=== PATIENT | male | born 1960 | race Caucasian/White ===

== ENCOUNTER → 2017-09-27 10:52 | Outpatient (CLI) | payer OTHER, SELFPAY ==
--- NOTE | 2017-09-27 11:01 | VDLE_ITS ---
Reason For Study: LLE edema RIGHT LEFT CFV is compressible, spontaneous, phasic, GSV is normal. competent and demonstrates normal CFV is compressible, spontaneous, phasic, augmentation. competent, and demonstrates normal Procedure augmentation. Exam performed in department. LT FV is compressible in the proximal and The exam was diagnostic. mid segments. A preliminary report was called and/or faxed LT distal FV is dilated and non compressible to Dr. Perez's office @ 11:20 am. C/W acute DVT. PT was instructed to return to Dr. Perez's LT POP V, T/P trunk, PTV and PERV are office. dilated and C/W acute DVT. Interpretation Summary Acute deep vein thrombosis is noted in the left distal femoral vein. Acute deep vein thrombosis is noted in the left popliteal vein. Acute deep vein thrombosis is noted in the left tibio-peroneal trunk. Acute deep vein thrombosis is noted in the left posterior tibial vein. Acute deep vein thrombosis is noted in the left peroneal vein. The left common femoral vein and proximal/mid- femoral vein are patent and compressible. The left great saphenous vein is patent and compressible. Ordering Physician: Jean Perez Referring Physician: Jean Perez Performed By: Misa Asher, SYLVIA, RVT
== END ==
PROVIDERS: Family Provider Family Medicine; PCP Family Medicine; Visit Provider Family Medicine
DX: M79.89 Other specified soft tissue disorders (principal); I82.412 Acute embolism and thrombosis of left femoral vein; I82.432 Acute embolism and thrombosis of left popliteal vein; I82.442 Acute embolism and thrombosis of left tibial vein
CPT/HCPCS: 93971

== ENCOUNTER → 2017-12-25 07:57 | Outpatient (CLI) | payer OTHER, SELFPAY | PROVIDERS: Family Provider Family Medicine; PCP Family Medicine; Visit Provider Family Medicine | DX: I82.402 Acute embolism and thrombosis of unspecified deep veins of left lower extremity (principal) | CPT/HCPCS: 93971 ==

== ENCOUNTER → 2018-01-22 16:49 | Outpatient (CLI) | payer OTHER, SELFPAY ==
[2018-01-22 17:28] LABS: Absolute Lymphocyte Count 1.93 X10^3/ul (0.83-4.51); Absolute Neutrophil Count 7.8 X10^3/uL (2.0-7.7); Basophil# 0.03 X10^3/uL; Basophil% 0.3 % (0-1); Eosinophil# 0.21 X10^3/uL; Eosinophils% 1.9 % (0-5); Hematocrit 46.7 % (40-54); Hemoglobin 15.8 g/dl (13.0-16.5); Lymphocyte # 1.93 X10^3/ul (4.0); Lymphocyte % 17.6 % (19-41); Mean Corp Hgb Conc 33.8 g/gl (32-36); Mean Corpuscular Hgb 28.1 pg (27.0-32.0); Mean Corpuscular Volume 83.1 fL (80-94); Mean Platelet Vol. 10.1 fl (6.2-12.0); Monocyte# 0.93 X10^3/uL; Monocyte% 8.5 % (0-10); Neutrophil # 7.76 X10^3/uL (2.7-7.7); Platelet Count 262 K/mm3 (150-450); RBC Distribution Width CV 14.1 % (11.6-14.6); RBC Distribution Width SD 42.7 fl (35.1-43.9); Red Blood Count 5.62 M/mm3 (4.6-6.2); White Blood Count 10.9 K/mm3 (4.4-11.0)
[2018-01-22 17:31] LABS: POSITIVE COUNT NO; POSITIVE DIFFERENTIAL NO; POSITIVE MORPHOLOGY NO
[2018-01-22 18:25] LABS: Anion Gap 9 (5-15); BUN 21 mg/dL (7-18); BUN/Creat Ratio 21.1 RATIO (10-20); Chloride 104 mmol/L (98-107); Cholesterol 227 mg/dL (200); EST Glomerular Filtration Rate 82 mL/min (>60); Est Glom Filt Rate - Afr Amer 99 mL/min (>60); Glucose 88 mg/dL (74-106); High Density Lipoprotein 45 mg/dL; Magnesium 2.1 mg/dL (1.6-2.6); Potassium 3.7 mmol/L (3.5-5.1); Sodium Level 139 mmol/L (136-145); Thyroid Stim Hormone (TSH) 1.72 uIU/mL (0.358-3.74); Triglycerides 106 mg/dL; Very Low Density Lipoprotein 21 mg/dL (5-40)
== END ==
PROVIDERS: Family Provider Family Medicine; PCP Family Medicine; Visit Provider Family Medicine
DX: I49.3 Ventricular premature depolarization (principal); R07.9 Chest pain, unspecified
CPT/HCPCS: 36415; 80048; 80061; 83735; 84443; 85025

== ENCOUNTER → 2018-02-28 12:33 | Outpatient (CLI) | payer OTHER, SELFPAY ==
--- NOTE | 2018-02-28 12:36 | STE_ITS ---
Reason For Study: Chest Pain Stress Results Protocol: Yoan Protocol Maximum Predicted HR: 160 bpm Target HR: 136 bpm% Max imum Predicted HR: 106 % DurationHeart Rate Stage (mm:ss) (bpm) BPCom ment Baseline 88 128/82 No Chest Pain Yoan Protocol Stage I 3:00 12 3 136/76No Chest Pain Yoan Protocol Stage II 3:00 13 9 134/70No Chest Pain Yoan Protocol Stage III 3:00 16 0 160/72No Chest Pain Yoan Protocol Stage IV 0:30 16 9 / No Chest Pain Recovery 100 124/8 0No Chest Pain Stress Duration: 9:30 mm:ss Maximum Stress HR: 169 bpmM ETS: 11 Baseline Echocardiogram Findings Stress Echo Wall motion Data Resting WMIntermediate WMStress WM Resting Wall Motion Wall Motion Stress All segments Normal. All segments Hyperkinetic. Ejection Fraction 60 %. Ejection Fraction 75 %. Stress Results Heart rate response: appropriate Blood pressure response: normal resting BP - appropriate response Arrhythmias: occasional PVCs pretest and during early exercise with decrease at peak exercise and a return to occasional PVCs during recovery Functional capacity: good Stopped secondary to: fatigue. EKG Data Baseline ECG: Normal Sinus Rhythm; PVC's. Peak exercisee ECG: No Obvious ECG Changes. Symptoms with Stress No c/o chest discomfort during exercise and recovery. Interpretation Summary Negative (Adequate) Stress Echocardiogram. Ordering Physician: Jean Perez Referring Physician: Hever Montiel M.D. Performed By: Elvin Pierre RCS
== END ==
PROVIDERS: Family Provider Family Medicine; PCP Family Medicine; Referring Provider Family Medicine; Visit Provider Family Medicine
DX: R07.89 Other chest pain (principal)
CPT/HCPCS: 93017; 93350

== ENCOUNTER → 2018-05-20 13:12 | Outpatient (CLI) | payer OTHER, SELFPAY | PROVIDERS: Family Provider Family Medicine; PCP Family Medicine; Referring Provider Family Medicine; Visit Provider Family Medicine | DX: M79.661 Pain in right lower leg (principal); Z86.718 Personal history of other venous thrombosis and embolism | CPT/HCPCS: 93970 ==

== ENCOUNTER → 2018-09-24 10:01 | Outpatient (CLI) | payer OTHER, SELFPAY ==
--- NOTE | 2018-09-24 10:04 | VDLE_ITS ---
Reason For Study: F/U DVT RIGHT LEFT CFV is compressible, spontaneous, phasic, GSV is normal. competent and demonstrates normal CFV is compressible, spontaneous, phasic, augmentation. competent, and demonstrates normal Procedure augmentation. Exam performed in department. FV is compressible, spontaneous, phasic, A preliminary report was called and/or faxed competent and demonstrates normal to Dr. Perez. augmentation. POP V is compressible, spontaneous, phasic, competent and demonstrates normal augmentation. LT PerV is compressible. Lt T/P Trunk and Lt PTV are partially compressible with bright intraluminal echoes consistent with chronic DVT. Lt SSV is dilated and noncompressible, no change from previous study on 05/20/18. Interpretation Summary Chronic deep venous thrombosis left tibioperoneal trunk and posterior tibial veins. Superficial thrombophlebitis left small saphenous vein Normal flow patterns right common femoral vein Ordering Physician: Jean Perez Referring Physician: Jean Perez Performed By: Nikole Mitchell, SYLVIA, RVT
== END ==
PROVIDERS: Family Provider Family Medicine; PCP Family Medicine; Referring Provider Family Medicine; Visit Provider Family Medicine
DX: I82.542 Chronic embolism and thrombosis of left tibial vein (principal); I80.02 Phlebitis and thrombophlebitis of superficial vessels of left lower extremity
CPT/HCPCS: 93971

== ENCOUNTER 2019-05-22 04:42 | Observation (INO) | payer OTHER, SELFPAY ==
[2019-05-22] VITALS (13 sets, daily range): BP systolic 112–150; BP diastolic 68–97; PULSE 78–106; RESP 12–23; TEMP 36.7–37.1; O2SAT 93–99; BMI 28.2; BMI 27.4; BMI 27.5
--- NOTE | 2019-05-22 04:53 | EKG12_ITS ---
Test Reason : ABD PAIN Blood Pressure : / mmHG Vent. Rate : 088 BPM Atrial Rate : 088 BPM P-R Int : 184 ms QRS Dur : 108 ms QT Int : 386 ms P-R-T Axes : 020 -05 041 degrees QTc Int : 467 ms Normal sinus rhythm Normal ECG Confirmed by SCOT BOCANEGRA, AMNA ([id number]), video editor IESHA BUSTOS ([id number]) on 05/25/2019 10:20:07 AM Referred By: LIT Confirmed By:AMNA ELLISON MD
--- NOTE | 2019-05-22 04:53 | RAD_ITS ---
HISTORY: CHEST WALL PAIN THAT HURTS WHEN TAKING DEEP BREATHS THAT WOKE HIM UP FROM SLEEP AROUND 0400 EXAM: XR Chest 1 View: COMPARISON: September 26, 2015 FINDINGS: # of images incl. paperwork: 1 The right hemidiaphragm remains slightly elevated. Multiple embolic coils, likely of the splenic artery are present within the left hemiabdomen Lungs are clear. Heart is not enlarged. No acute osseous pathology perceived. Pulmonary vascularity is distinct. No effusions. RAD/Chest 1 View (Portable) IMPRESSION: No acute cardiopulmonary disease perceived. at 0568 Reported and signed by: Jonatan White MD Electronically Signed: Jonatan White MD at 5:25 EST Tel , Service support ,
--- NOTE | 2019-05-22 04:57 | ED.VISSUMM ---
- ER Visit Summary Date of Service: 05/22/19 Chief Complaint: Abdominal pain History of Present Illness: The patient is a 59 M presenting with abdominal pain. Patient states this is worse with taking a deep breath. Pain started around 4 AM. Initially woke up and thought he might feel better if he had a bowel movement. He continued to have symptoms therefore he presented to the emergency department. He denies fever. He has had URI symptoms. He denies nausea, vomiting, diarrhea. Denies constipation. Denies blood in stool. Denies urinary complaints. Denies other complaints. Physical Examination: Vitals are stable. Patient is afebrile. Alert no acute distress. HEENT exam is unremarkable. Neck is supple. Lungs are clear and equal bilaterally. Heart is regular rate and rhythm. Abdomen is soft nontender nondistended. No guarding or rebound Extremities are unremarkable. Skin is warm and dry. No focal neurologic deficit. Remainder of exam is unremarkable. Emergency Department Course and Treatment: EKG is sinus rhythm rate of 88 with no acute ischemic changes. CBC shows white count 14.3. Chemistries normal except glucose 116, BUN 20. Liver lipase are normal. Urinalysis unremarkable. Troponin is negative. Chest x-ray shows no acute process. CTA chest shows multiple pulmonary emboli are present on the left, seen in left lower lobe and lingular branches. No pulmonary infarct. CT abdomen shows stable thrombosed splenic artery aneurysm. No evidence of appendicitis, acute intestinal pathology, or acute obstructive uropathy. Discussed with the hospitalist. He was given Lovenox. He will be admitted. Disposition: Admission Impression: Pulmonary embolism This note was generated with [employer] dictation software. It may contain incorrect words, spelling, and punctuation that were not noted in review of the chart prior to signing ED Disposition - Plan for ED Patient: Referrals: Jean Magana MD [Primary Care Provider] -
[2019-05-22 05:10] LABS: Absolute Lymphocyte Count 2.28 X10^3/uL (0.83-4.51); Absolute Neutrophil Count 9.9 X10^3/uL (2.0-7.7); Basophil# 0.06 X10^3/uL; Basophil% 0.4 % (0-1); Eosinophil# 0.62 X10^3/uL; Eosinophils% 4.3 % (0-5); Hematocrit 45.4 % (40-54); Hemoglobin 14.8 g/dL (13.0-16.5); Lymphocyte # 2.28 X10^3/ul (4.0); Mean Corp Hgb Conc 32.6 g/dL (32-36); Mean Corpuscular Hgb 27.5 pg (27.0-32.0); Mean Corpuscular Volume 84.2 fL (80-94); Mean Platelet Vol. 9.7 fl (6.2-12.0); Monocyte# 1.31 X10^3/uL; Monocyte% 9.2 % (0-10); NRBC Flagged by Analyzer 0 % (0-5); Neutrophil # 9.93 X10^3/uL (2.7-7.7); Neutrophil % 69.5 % (47-70); Platelet Count 208 K/mm3 (150-450); RBC Distribution Width CV 13.7 % (11.6-14.6); RBC Distribution Width SD 42.1 fl (35.1-43.9); Red Blood Count 5.39 M/mm3 (4.6-6.2); White Blood Count 14.3 K/mm3 (4.4-11.0)
[2019-05-22 05:28] LABS: ALB/GLOB Ratio 1.1 RATIO (0.9-2.4); AST(SGOT) 13 U/L (15-37); Alanine Aminotransfer ALT/SGPT 30 U/L (16-61); Albumin, Serum 3.9 g/dL (3.2-5.0); Alkaline Phosphatase 83 U/L (45-117); Anion Gap 5 (5-15); BUN 20 mg/dL (7-18); BUN/Creat Ratio 19.8 RATIO (10-20); Calcium,Total 8.7 mg/dL (8.5-10.1); Chloride 105 mmol/L (98-107); Creatinine, Serum 1.01 mg/dL (0.70-1.30); EST Glomerular Filtration Rate 80 mL/min (>60); Est Glom Filt Rate - Afr Amer 97 mL/min (>60); Estimated Creatinine Clearance 74.31 ml/min; Globulin 3.5 g/dL (2.2-4.2); Glucose 116 mg/dL (74-106); Lipase 106 U/L (73-393); Potassium 3.9 mmol/L (3.5-5.1); Protein, Total 7.4 g/dL (6.4-8.2); Sodium Level 138 mmol/L (136-145)
--- NOTE | 2019-05-22 05:39 | CT_ITS ---
STUDY: CT ABDOMEN AND PELVIS WITH CONTRAST REASON FOR EXAM: Male, 59 years old. ABDOMEN AND CHEST PAIN. PRIOR SPLENIC ARTERY ANEURYSM RADIATION DOSAGE (If Supplied By Facility): CTDIvol = ( 13.56 ) mGy, DLP = ( 1429.31 ) mGycm TECHNIQUE: Transaxial images were obtained from the dome of the diaphragm to the symphysis pubis without oral contrast. IV 100mL Isovue-370 was administered. Sagittal and coronal images were reconstructed. Individualized dose optimization techniques were used for this CT. COMPARISON: 07/02/2016 FINDINGS: The visualized lung bases are unremarkable. The visualized portions of the heart are within normal limits. Normal liver. Normal gallbladder and extrahepatic biliary system. Normal spleen. Stable thrombosed splenic artery aneurysm measuring 26 x 23 mm. Normal pancreas. Normal bilateral adrenal glands. Normal right kidney. Normal left kidney. Normal visualized stomach. Normal small intestine. Normal colon. The appendix is visualized and appears normal. Normal abdominal aorta. Normal inferior vena cava. Normal retroperitoneum. Normal urinary bladder. There are prostatic calcifications. Umbilical fat hernia. Grade 1 L4-[address]/Abdomen/Pelvis W IV Cont ONLY IMPRESSION: Stable thrombosed splenic artery aneurysm. No evidence of appendicitis, acute intestinal pathology, or acute obstructive uropathy. Electronically Signed: Chris Cohen MD at 6:39 EST Tel , Service support ,
--- NOTE | 2019-05-22 05:39 | CT_ITS ---
We are attempting to reach an attending provider to discuss findings. An addendum with communication details will be sent when the communication is complete. STUDY: CTA CHEST REASON FOR EXAM: Male, 59 years old. ABDOMEN AND CHEST PAIN. HISTORY OF SPLENIC ANEURYSM AND DVT''S RADIATION DOSAGE (If Supplied By Facility): CTDIvol = ( 13.56 ) mGy, DLP = ( 1429.31 ) mGycm TECHNIQUE: The examination was performed with the intravenous administration of IV 100mL Isovue-370. Post-processing of the angiographic images was performed, with multiplanar reformation and 3D reconstruction. Individualized dose optimization techniques were used for this CT. COMPARISON: 06/20/2014 FINDINGS: Multiple pulmonary emboli are present on the left, seen in left lower lobe and lingular branches. Normal thoracic aorta and visualized great vessels. There is no demonstrated aortic dissection. Normal heart and pericardium. Normal mediastinum. Normal hilar regions. Normal visualized trachea and bronchi. Right basilar atelectasis. Normal pulmonary parenchyma. Normal pleura. Normal chest wall structures. Normal osseous structures. See separate abdominal CT report for details of the upper abdomen. CT/CTA Chest W/WO Contrast IMPRESSION: Multiple pulmonary emboli are present on the left, seen in left lower lobe and lingular branches. No pulmonary infarct. Electronically Signed: Chris Cohen MD at 6:34 EST Tel , Service support ,
[2019-05-22 06:12] LABS: Bacteria 0 SEEN /hpf (None Seen); Mucous, Urine 0 SEEN /hpf (<or=2+); Red Blood Cells-Urine 0 SEEN /hpf (0-5); Squamous Epithelial Cells - UA 0 SEEN /hpf (0-5); White Blood Cells 0 SEEN /hpf (0-5)
[2019-05-22 06:17] LABS: Color, Urine Yellow (Yellow); Glucose, Dipstick Normal (Normal); Ketone-Dipstick Negative (Negative); Leukocyte Esterase-Dipstick Negative /ul (Negative); Nitrite-Dipstick Negative (Negative); Occult Blood-Urine Negative /ul (Negative); Protein-Dipstick Negative (Negative); Specific Gravity, Urine 1.015 (1.002-1.030); Urine Bilirubin Dipstick Negative (Negative); Urine Clarity Clear (Clear); Urine Urobilinogen Normal (Normal)
--- NOTE | 2019-05-22 07:19 | NURSING ---
PCSascha SÁNCHEZ ASHELFAH
[2019-05-22] MEDS: Enoxaparin 80 MG/0.8 ML Syringe 85 MG SC (07:28)
[2019-05-22] MEDS: 0.9% Normal Saline 1,000 ML 75 ML IV (08:04)
[2019-05-22] MEDS: 0.9% Saline Lock 10 ML Syringe IV (08:05)
[2019-05-22 08:33] LABS: International Normalized Ratio 1.1; Prothrombin Time (Protime)PT. 13.7 SECONDS (11.7-14.9)
[2019-05-22] MEDS: amLODIPine 5 MG Tablet PO (09:53)
[2019-05-22] MEDS: Lisinopril 10 MG Tablet PO (09:53)
--- NOTE | 2019-05-22 10:41 | PCM.HP.STD ---
Problem List (1) Pulmonary embolism Status: Acute (2) History of splenic aneurysm Status: Chronic (3) History of left leg DVT Status: Chronic (4) Hypertension Status: Chronic History of Present Illness Date of Admission: 05/22/19 Chief Complaint: Abdominal pain. The patient is a 59 year old M patient with past medical history as mentioned above presented to the emergency room because of abdominal pain. His symptoms started this morning around 4 AM after he woke up from sleep, started having abdominal pain, generalized, described as squeezing type pain, 6 out of 10 in severity, aggravated by taking a deep breath and without aggravating factor. This pain lasted for Couple of hours until he came to the emergency department. He denied nausea or vomiting. Denies constipation or diarrhea. Denies fever or chills. He denied chest pain or shortness of breath. Denied palpitation, dizziness or lightheadedness. Patient with history of right leg DVT on Sep, 2017 and he was treated with Eliquis for 6 months with serial venous Dopplers. Eliquis was discontinued 6 months ago but he was informed that he still have a residual of those blood clots in the left leg. Last venous Doppler done on September, and that showed chronic DVT of the left tibioperoneal trunk and posterior tibial veins. At that time, Eliquis was discontinued. Patient denied any recent travel. He denied recent surgery or history of cancer. In the emergency department, his vital signs were stable. His routine blood work was remarkable for leukocytosis, otherwise normal. EKG revealed normal sinus rhythm without evidence of acute segment changes or cardiac arrhythmias. Troponin was negative. LFT was unremarkable. Lipase was normal. Urinalysis was clean without evidence of infection. Chest x-ray showed no acute findings. CT scan abdomen and pelvis with IV contrast revealed stable thrombosed splenic artery aneurysm, no other acute findings. CTA chest revealed multiple left lower lobe and lingular branches pulmonary emboli. Patient is being admitted for acute multiple left pulmonary emboli. Past Medical History Past Medical History (Chronic Problems): Chronic Problems History of splenic aneurysm (Chronic) History of left leg DVT (Chronic) Hypertension (Chronic) Allergies No Known Allergies Allergy (Verified 05/22/19 04:43) Home Medications: Ambulatory Orders Medication Instructions Recorded Lisinopril [Zestril] 10 mg PO DAILY 06/20/14 Amlodipine [Norvasc] 5 mg PO DAILY 09/26/15 Aspirin [Aspirin, Baby] 81 mg PO DAILY 05/22/19 Multivitamin with Minerals 1 ea PO DAILY 05/22/19 [Multiple Vitamin] Surgical History: no surgical history Psychiatric History: No pertinent psych hx Lives: Spouse/ Significant Other Smoking Status: Never smoker Tobacco Use: Non-smoker Alcohol: None Drugs: None - *Family History Maternal History Items: No pertinent history Paternal History Items: No pertinent history Review of Systems Constitutional: Denies: Anorexia, Chills, Fever, Night Sweats Eyes: Denies: Blurred vision, Cataracts, Double vision, Drainage, Redness HEENT: Denies: Difficulty Hearing, Ear Pain, Eye Pain, Nasal Congestion, Sore Throat Cardiovascular: Denies: Chest Pain, Chest Pressure, Chest Tightness, Heaviness, Light Headedness, Palpitations, Syncope Respiratory: Denies: Cough, Pleuritic Pain, Shortness of Breath, Sputum production, Wheezing Gastrointestinal: Reports: Abdominal Pain. Denies: Constipation, Diarrhea, Nausea, Vomiting Genitourinary: Denies: Dysuria, Frequency, Hematuria Musculoskeletal: Denies: Arm Pain, Back Pain, Foot Pain Skin: Denies: Dryness, Rash Neurological: Denies: Balance problems, Double vision, Change in Speech, Slurred speech, Confusion, Headaches, Numbness, Tingling Psychiatric: Denies: Anxiety, Depression Endocrine: Denies: Change in Body Habitus, Heat/ Cold Intolerance, Polydipsia, Polyuria VTE Information - Inpt Only VTE Present on Admission: Yes VTE Mechan Device Prophylaxis: None VTE Pharm Prophylaxis ordered?: No Patient Problems: Active and Suspected Problems Pulmonary embolism (Acute) - Physical Exam Vitals/I&O's: Vital Signs Temp Pulse Resp BP Pulse Ox 98.3 F 86 16 122/71 H 94 05/22/19 07:50 05/22/19 07:50 05/22/19 07:50 05/22/19 09:55 05/22/19 07:50 Oxygen Delivery Method Room Air Weight: 180 lb 8.937 oz Body Mass Index (BMI) 27.4 General: Alert, Oriented x3, Cooperative, No apparent distress HEENT: Atraumatic, PERRLA, EOMI, Normocephalic Oral: Moist Mucosa, No Gingival or Mucosal Lesions/ Ulcerations Neck: Supple, No JVD, Negative Carotid Bruits, Trachea Midline, Thyroid Normal Size and Texture Lungs: Clear to auscultation, Normal air movement, No rhonchi, No wheeze, No rales Cardiovascular: Regular rate, Regular Rhythm, Normal S1, Normal S2, No murmurs, PMI Normal Abdomen: Bowel Sounds Present, Soft, Non Tender, Non-Distended, No Hepato-splenomegaly Extremities: No clubbing, No cyanosis, No edema Skin: No rashes, No breakdown Lymphatic: No Cervical, Supraclavicular, or Inguinal Adenopathy Neurological: Cranial nerves II-XII grossly intact, Motor Exam 5/5 strength throughout Psych/Mental Status: Normal Affect, Appropriate, Alert and oriented to time, place, person, mood and affect Laboratory Results 05/22/19 05:00: WBC 14.3 H, RBC 5.39, Hgb 14.8, Hct 45.4, MCV 84.2, MCH 27.5, MCHC 32.6, RDW Std Deviation 42.1, RDW Coeff of Ankita 13.7, Plt Count 208, MPV 9.7, Immature Gran % (Auto) 0.600, Neut % (Auto) 69.5, Lymph % (Auto) 16.0 L, Hodgeman % (Auto) 9.2, Eos % (Auto) 4.3, Baso % (Auto) 0.4, Absolute Neuts (auto) 9.9 H, Absolute Lymphs (auto) 2.28, Nucleated RBC % 0 05/22/19 05:00: Sodium 138, Potassium 3.9, Chloride 105, Carbon Dioxide 28.0, Anion Gap 5, BUN 20 H, Creatinine 1.01, Estim Creat Clear Calc 74.31, Est GFR (MDRD) Af Amer 97, Est GFR (MDRD) Non-Af 80, BUN/Creatinine Ratio 19.8, Glucose 116 H, Calcium 8.7, Total Bilirubin 0.90, AST 13 L, ALT 30, Alkaline Phosphatase 83, Troponin I < 0.015, Total Protein 7.4, Albumin 3.9, Globulin 3.5, Albumin/Globulin Ratio 1.1, Lipase 106 05/22/19 05:45: Urine Color Yellow, Urine Clarity Clear, Urine pH 6.0, Ur Specific Glen 1.015, Urine Protein Negative, Urine Glucose (UA) Normal, Urine Ketones Negative, Urine Occult Blood Negative, Urine Nitrite Negative, Urine Bilirubin Negative, Urine Urobilinogen Normal, Ur Leukocyte Esterase Negative, Urine RBC 0 SEEN, Urine WBC 0 SEEN, Ur Squamous Epith Cells 0 SEEN, Urine Bacteria 0 SEEN, Urine Mucus 0 SEEN 05/22/19 08:05: PT 13.7, INR 1.1 05/22/19 08:05: Protein C Antigen Pending, Prot C Funct Activity Pending, Functional Protein S Pending, Free Protein S Pending, Total Protein S Pending, Func Antithrombin III Pending, Factor V Leiden Mutat Pending, Anti-Cardiolipin IgG Ab Pending, Anti-Cardiolipin IgM Ab Pending Clinical Impression(s) from Imaging Studies Chest X-Ray 05/22/19 04:53 IMPRESSION: No acute cardiopulmonary disease perceived. at 0526 Reported and signed by: Jonatan White MD Electronically Signed: Jonatan White MD at 5:25 EST Tel , Service support , Abdomen/Pelvis CT 05/22/19 05:39 IMPRESSION: Stable thrombosed splenic artery aneurysm. No evidence of appendicitis, acute intestinal pathology, or acute obstructive uropathy. Electronically Signed: Chris Cohen MD at 6:39 EST Tel , Service support , Chest CTA 05/22/19 05:39 IMPRESSION: Multiple pulmonary emboli are present on the left, seen in left lower lobe and lingular branches. No pulmonary infarct. Electronically Signed: Chris Cohen MD at 6:34 EST Tel , Service support , ADDENDUM: 05/22/19 0644 IMPRESSION: Multiple pulmonary emboli are present on the left, seen in left lower lobe and lingular branches. No pulmonary infarct. N.B. : The above information has been verbally conveyed by Chris Cohen MD to Denise Hodges MD, on 05/22/2019 06:37:41 (ET). Electronically Signed: Chris Cohen MD at 6:34 EST Tel , Service support , Current Medications Acetaminophen (Tylenol) 650 mg PO Q6H PRN PRN PRN Reason: Pain Score 1-3/Temp > 100.7 F Amlodipine Besylate (Norvasc) 5 mg PO DAILY [facility] Last Admin: 05/22/19 09:53 Dose: 5 mg Documented by: Enoxaparin Sodium (Lovenox) 80 mg SC Q12@0600,1800 [facility] Sodium Chloride () 1,000 mls @ 75 mls/hr IV .[id number] [facility] Stop: 05/22/19 21:01 Last Admin: 05/22/19 08:04 Dose: 75 mls/hr Documented by: Sodium Chloride () 250 mls @ 15 mls/hr IV .[id number] PRN PRN Reason: Saline Flush Sodium Chloride () 250 mls @ 15 mls/hr IV .[id number] PRN PRN Reason: Additional IVPB Infusion Lisinopril (Zestril) 10 mg PO DAILY [facility] Last Admin: 05/22/19 09:53 Dose: 10 mg Documented by: Morphine Sulfate () 1 mg IV Q4H PRN PRN PRN Reason: Pain Score 6-10/10 Ondansetron HCl (Zofran) 4 mg IV Q8H PRN PRN PRN Reason: NAUSEA/VOMITING Oxycodone HCl (Oxyir) 5 mg PO Q6H PRN PRN PRN Reason: Pain Score 4-10/10 Senna/Docusate Sodium (Senokot-S, Margot-Colace) 2 tablet PO BID PRN PRN PRN Reason: Constipation Sodium Chloride () 10 - 40 ml IV UD PRN PRN Reason: SALINE FLUSH Last Admin: 05/22/19 08:05 Dose: 10 ml Documented by: Assessment/Plan All Active Problems Pulmonary embolism (Acute) This is a 59 years old male patient presented to the emergency room because of abdominal pain, found to have multiple left lung pulmonary emboli on CTA chest and he is being admitted for treatment. #1 acute multiple left lower lobe/lingular branches pulmonary emboli: In context of history of left leg DVT, was on Eliquis which was discontinued 6 months ago. No history of travel, recent history or history of cancer. No family history of clotting disorders. EKG reviewed, unremarkable. Respiratory status stable. He does have leukocytosis which is probably reactive, no evidence of infection. Plan: Admit to PCU, cardiac monitoring, start therapeutic Lovenox twice daily, will do hypercoagulable work-up including protein C profile, protein S, Antithrombin III, factor V Leiden, anticardiolipin, repeat CBC tomorrow morning. #2 history of left lower extremity DVT: Completed Eliquis 6 months ago. Last Doppler ultrasound was done on Sep, 2018 and showed chronic DVT of the left leg as prescribed above. Plan as above. #3 history of splenic artery aneurysm: Status post coiling/thrombosis, stable on CTA abdomen. #4 hypertension: Blood pressure stable, continue Norvasc and lisinopril. #5 DVT prophylaxis: Patient will be on Lovenox twice daily for treatment. This note was generated with [employer] dictation software. It may contain incorrect words, spelling, and punctuation that were not noted in checking the note before signing. Code Visit Inpatient E&M: 29575 Init Hosp L3
--- NOTE | 2019-05-22 12:34 | CASEMGMT ---
RN CM Assessment Introduced role of RN CM to patient, sitting in chair at side of bed.? Patient is alert, oriented and able?to participate in RN CM Assessment. ?Care providers, pharmacy, and demographics verified. Presentation: Abd Pain Admit Dx: Mult Lt Pulmonary Emboli Re-Admit: No Barriers/Issues: None PCP: Jean Magana Specialists: None Preferred Pharmacy: [facility], [facility] Insurance: [employer] Rx Benefit: Yes? ?LNOK: Nu Farley LW/HPOA: States thinks has a will but not sure if it is a LW, will have to ask his . Declines offered information or completion of services on this admission. Aware can return as an Outpatient to complete with dept. Living Arrangements:? Lives with his in a 2SH, Has a Bedroom on both 1[address] and [address] fl. No steps to enter home. ADL?s: Independent with ambulation and ADLs Transportation: Patient drives and denies any issues with transportation DME: None HHC: None SNF: None Goal: Home and does not think will have any needs. Patient currently on room air, pending ambulatory walking test, provided an In Network DME list and patient preference is [facility] if Oxygen is needed. Denies any issues, concerns, needs or questions with DC planning at this time. Aware CM will remain available for any emerging needs. DC PLAN: Home with no anticipated needs identified at this time. GALLO Loco
[2019-05-22] MEDS: Enoxaparin 80 MG/0.8 ML Syringe SC (17:27)
--- NOTE | 2019-05-22 18:31 | NURSING ---
Reviewed and agreed on all charting with Suad Sandoval RN
[2019-05-23 01:06] LABS: Magnesium 2.1 mg/dL (1.6-2.6)
[2019-05-23 01:55] VITALS: BP 117/66; PULSE 78; RESP 16; TEMP 36.5; O2SAT 96
[2019-05-23 03:00] VITALS: PULSE 66
[2019-05-23] MEDS: Enoxaparin 80 MG/0.8 ML Syringe SC (06:07)
[2019-05-23 07:24] LABS: Absolute Lymphocyte Count 1.58 X10^3/uL (0.83-4.51); Absolute Neutrophil Count 5.6 X10^3/uL (2.0-7.7); Basophil# 0.07 X10^3/uL; Basophil% 0.8 % (0-1); Eosinophil# 0.49 X10^3/uL; Eosinophils% 5.6 % (0-5); Hematocrit 43.5 % (40-54); Hemoglobin 14.2 g/dL (13.0-16.5); Lymphocyte # 1.58 X10^3/ul (4.0); Lymphocyte % 18.1 % (19-41); Mean Corp Hgb Conc 32.6 g/dL (32-36); Mean Corpuscular Hgb 27.6 pg (27.0-32.0); Mean Corpuscular Volume 84.6 fL (80-94); Monocyte# 0.87 X10^3/uL; NRBC Flagged by Analyzer 0 % (0-5); Neutrophil # 5.63 X10^3/uL (2.7-7.7); Neutrophil % 64.7 % (47-70); Platelet Count 205 K/mm3 (150-450); RBC Distribution Width CV 13.6 % (11.6-14.6); RBC Distribution Width SD 41.9 fl (35.1-43.9); Red Blood Count 5.14 M/mm3 (4.6-6.2); White Blood Count 8.7 K/mm3 (4.4-11.0)
[2019-05-23 07:30] VITALS: PULSE 74
[2019-05-23] MEDS: APIXABAN 5 MG TABLET 10 MG PO (09:29)
[2019-05-23] MEDS: Lisinopril 10 MG Tablet PO (09:30)
[2019-05-23] MEDS: amLODIPine 5 MG Tablet PO (09:30)
[2019-05-23] MEDS: Aspirin 81 MG TAB.CHEW PO (09:30)
[2019-05-23 09:33] VITALS: BP 107/71; PULSE 77; RESP 18; TEMP 36.5; O2SAT 96
--- NOTE | 2019-05-23 11:08 | PCM.DC ---
- Discharge Diagnoses Current Active Problems: Current Active and Chronic Problems Pulmonary embolism (Acute) History of splenic aneurysm (Chronic) History of left leg DVT (Chronic) Hypertension (Chronic) You will use the following diet at home:: Cardiac Your food should be the consistency of: Regular Discharge Activity: Return to Normal Activity Weight Bearing Status: Full weight bearing Call your doctor if you observe: Fever of 101 or Higher, Shortness of breath, Dizziness, Fainting spells, Chest pain, Increased palpitations (irregular heartbeat), Uncontrolled pain Instructions: Pulmonary Embolism Allergies/Adverse Reactions: Allergies No Known Allergies Allergy (Verified 05/22/19 04:43) Medications to take at Discharge Lisinopril [Zestril] 10 mg PO DAILY 06/20/14 Amlodipine [Norvasc] 5 mg PO DAILY 09/26/15 Aspirin [Aspirin, Baby] 81 mg PO DAILY 05/22/19 Multivitamin with Minerals [Multiple Vitamin] 1 ea PO DAILY 05/22/19 Apixaban [Eliquis] 10 mg PO #90 tab 05/23/19 The following prescriptions were given: Apixaban [Eliquis] 10 mg PO 799,1999 #90 tab Transmission Status: Received by [facility] Primary Care Physician: Jean Magana MD [Primary Care Provider] - Please follow up with your Primary Care Physician in: 1-2 weeks. Test Results: Test results from this visit will be discussed in further detail at your follow-up appointment, if applicable.
[2019-05-23 12:00] VITALS: BP 124/68; PULSE 72; RESP 18; TEMP 36.8; O2SAT 98
--- NOTE | 2019-05-23 12:12 | DS.PCM_ITS ---
Discharge Date and Diagnosis Date of Admission: 05/22/19 Date of Discharge: 05/23/19 - Primary Discharge Diagnosis Acute multiple left lower lobe/lingular branches pulmonary emboli. 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 at 0526 Reported and signed by: Jonatan White MD Electronically Signed: Jonatan White MD at 5:25 EST Tel , Service support , Abdomen/Pelvis CT 05/22/19 05:39 IMPRESSION: Stable thrombosed splenic artery aneurysm. No evidence of appendicitis, acute intestinal pathology, or acute obstructive uropathy. Electronically Signed: Chris Cohen MD at 6:39 EST Tel , Service support , Chest CTA 05/22/19 05:39 IMPRESSION: Multiple pulmonary emboli are present on the left, seen in left lower lobe and lingular branches. No pulmonary infarct. Electronically Signed: Chris Cohen MD at 6:34 EST Tel , Service support , ADDENDUM: 05/22/19 0644 IMPRESSION: Multiple pulmonary emboli are present on the left, seen in left lower lobe and lingular branches. No pulmonary infarct. N.B. : The above information has been verbally conveyed by Chris Cohen MD to Denise Hodges MD, on 05/22/2019 06:37:41 (ET). Electronically Signed: Chris Cohen MD at 6:34 EST Tel , Service support , Operations: None Procedures: None Summary of Care Provided: Patient seen and examined on the day of discharge and appeared to be stable to be discharged home. He denied any more abdominal pain. Denied chest pain or shortness of breath. His vitals are stable. The patient is a 59 year old M patient presented to the emergency room because of abdominal pain and he was found to have acute multiple left lung pulmonary emboli. His main presenting complaint was vague abdominal pain across the abdomen for which CT scan abdomen and pelvis with IV contrast performed and revealed stable thrombosed splenic artery aneurysm without evidence of acute intra-abdominal pathology. Also patient complains of vague chest pain for which CTA chest done and revealed multiple left lower lobe and lingular branches pulmonary emboli, there was no evidence of dissection. This patient history of left leg DVT on Sep, 2017, was treated with Eliquis which was discontinued on 6 months ago. 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 It is not clear if this acute PE is provoked history of DVT or unprovoked secondary to a different etiology. Patient was treated with therapeutic Lovenox twice daily. EKG was unremarkable. Routine blood work was remarkable for leukocytosis which is reactive, resolved on repeat CBC. LFT and lipase were unremarkable. Hypercoagulability work-up was sent and pending at the time of discharge. Patient was started on Eliquis on the day of discharge. Patient discharged home in a stable medical condition, discharged on Eliquis 10 mg p.o. twice daily for 7 days and then to take 5 mg p.o. twice daily, instructed to follow-up with PCP regarding the results of the hypercoagulable work-up, follow-up with PCP in 1 to 2 weeks. - Physical Exam Vitals/I&O's: Vital Signs Temp Pulse Resp BP Pulse Ox 98.3 F 72 18 124/68 H 98 05/23/19 12:00 05/23/19 12:00 05/23/19 12:00 05/23/19 12:00 05/23/19 12:00 Oxygen Delivery Method Room Air Weight: 180 lb 8.937 oz Body Mass Index (BMI) 27.4 Intake and Output for Last 24 Hours 05/21/19 05/22/19 05/23/19 23:59 23:59 23:59 Intake Total 2099 Output Total Balance 2097 General: Alert, Oriented x3, Cooperative, No apparent distress HEENT: Atraumatic, PERRLA, EOMI, Normocephalic Oral: Moist Mucosa, No Gingival or Mucosal Lesions/ Ulcerations Neck: Supple, No JVD, Negative Carotid Bruits, Trachea Midline, Thyroid Normal Size and Texture Lungs: Clear to auscultation, Normal air movement, No rhonchi, No wheeze, No rales Cardiovascular: Regular rate, Regular Rhythm, Normal S1, Normal S2, PMI Normal Abdomen: Bowel Sounds Present, Soft, Non Tender, Non-Distended, No Hepato-splen omegaly Extremities: No clubbing, No cyanosis, No edema Skin: No rashes, No breakdown Lymphatic: No Cervical, Supraclavicular, or Inguinal Adenopathy Neurological: Cranial nerves II-XII grossly intact, Neuro grossly intact Psych/Mental Status: Normal Affect, Appropriate Laboratory Results 05/22/19 05:00: Magnesium 2.1 05/23/19 06:41: WBC 8.7, RBC 5.14, Hgb 14.2, Hct 43.5, MCV 84.6, MCH 27.6, MCHC 32.6, RDW Std Deviation 41.9, RDW Coeff of Ankita 13.6, Plt Count 205, MPV 10.0, Immature Gran % (Auto) 0.800, Neut % (Auto) 64.7, Lymph % (Auto) 18.1 L, Sullivan % (Auto) 10.0, Eos % (Auto) 5.6 H, Baso % (Auto) 0.8, Absolute Neuts (auto) 5.6, Absolute Lymphs (auto) 1.58, Nucleated RBC % 0 Discharge Activity: Return to Normal Activity Weight Bearing Status: Full weight bearing Call your doctor if you observe: Fever of 101 or Higher, Shortness of breath, Dizziness, Fainting spells, Chest pain, Increased palpitations (irregular heartbeat), Uncontrolled pain Home Medications: Medications to take at Discharge Lisinopril [Zestril] 10 mg PO DAILY 06/20/14 Amlodipine [Norvasc] 5 mg PO DAILY 09/26/15 Aspirin [Aspirin, Baby] 81 mg PO DAILY 05/22/19 Multivitamin with Minerals [Multiple Vitamin] 1 ea PO DAILY 05/22/19 Apixaban [Eliquis] 10 mg PO #90 tab 05/23/19 Following Prescrptions Were Given to Patient: Apixaban [Eliquis] 10 mg PO #90 tab Transmission Status: Received by [place] [facility]30 Primary Care Physician: Jean Magana MD [Primary Care Provider] - Please follow up with your Primary Care Physician in: 1-2 weeks. Patient Instructions: Pulmonary Embolism Disposition: Home Minutes spent on discharge:: 28 Patient Condition:: Stable Medical Necessity - Tobacco Use Smoking Status: Never smoker Tobacco Use: Non-smoker Meaningful Use Info Meaningful Use Diagnoses (Choose all that apply): None applicable Code Visit Inpatient E&M: 35492 Disch Hosp
[2019-05-27 14:08] LABS: Protein C Antigen 114 % (60-150); Protein C, Functional 144 % (73-180)
[2019-05-28 16:08] LABS: Protein S, Free 84 % (57-157); Protein S, Total 93 % (60-150)
[2019-05-28 16:09] LABS: Anti-Cardiolipin Ab, IgG, Qn < 9 GPL U/mL (0-14); Anti-Cardiolipin Ab, IgM, Qn < 9 MPL U/mL (0-12); Antithrombin 3 Function 96 % (75-135); Protein S, Funtional 95 % (63-140)
== END 2019-05-23 12:00 | disposition home or self-care (01) ==
LOC: ED 07:27 → PCU 07:35
PROVIDERS: Internal Medicine; Admitting Provider Hospitalist; Emergency Provider Emergency Medicine; Family Provider Family Medicine; PCP Family Medicine; Visit Provider Hospitalist
DX: I26.99 Other pulmonary embolism without acute cor pulmonale (principal); I10 Essential (primary) hypertension; Z79.899 Other long term (current) drug therapy; Z79.82 Long term (current) use of aspirin; Z86.718 Personal history of other venous thrombosis and embolism
CPT/HCPCS: 36415; 71045; 71275; 74177; 80053; 81001; 81241; 83690; 83735; 84484; 85025; 85300; 85302; 85303; 85305; 85306; 85610; 86147; 93005; 96360; 96361; 96372; 96375; 99218; 99251; 99285; J7030; Q9967; A4216; G0378; G0463

== ENCOUNTER → 2020-02-25 | Outpatient (CLI) | payer OTHER, SELFPAY ==
[2019-05-22 07:58] VITALS: BMI 27.4
== END | disposition home or self-care (01) ==
PROVIDERS: PCP Family Medicine; Referring Provider Family Medicine; Visit Provider Family Medicine
DX: Z20.828 Contact with and (suspected) exposure to other viral communicable diseases (principal)
CPT/HCPCS: 87635; U0003

== ENCOUNTER 2020-05-29 07:16 | Emergency (ER) | payer OTHER, SELFPAY ==
[2019-05-22 07:58] VITALS: BMI 27.4
[2020-05-29 07:21] VITALS: BP 101/61; PULSE 51; RESP 19; TEMP 36.4; O2SAT 95; BMI 29.0
--- NOTE | 2020-05-29 07:26 | CT_ITS ---
STUDY: CT ABDOMEN AND PELVIS WITH CONTRAST REASON FOR EXAM: Male, 60 years old. LLQ AB PAIN X 1 HOUR RADIATION DOSAGE (If Supplied By Facility): CTDIvol = ( 16.97 ) mGy, DLP = ( 795.19 ) mGycm TECHNIQUE: Transaxial images were obtained from the dome of the diaphragm to the symphysis pubis without oral contrast. IV 100mL Isovue-370 was administered. Sagittal and coronal images were reconstructed. Individualized dose optimization techniques were used for this CT. COMPARISON: 05/22/2019 FINDINGS: The visualized lung bases are unremarkable. The visualized portions of the heart are within normal limits. Normal liver. Normal gallbladder and extrahepatic biliary system. Normal spleen. Normal pancreas. Normal bilateral adrenal glands. Normal right kidney. Normal left kidney. Normal visualized stomach. Normal small intestine. Large amount of stool throughout the colon suggestive of constipation. There is non-visualization of the appendix. Normal abdominal aorta. Normal inferior vena cava. Normal retroperitoneum. Normal urinary bladder. There is a small umbilical hernia containing fat. Normal osseous structures. CT/Abdomen/Pelvis W IV Cont ONLY IMPRESSION: Suspect constipation. Electronically Signed: Maxim Hewitt MD at 8:39 EST Tel , Service support ,
--- NOTE | 2020-05-29 07:29 | ED.DCSUM_ITS ---
History of Present Illness Chief Complaint: Abd Pain Informant: Patient Narrative: 50-year-old male with past medical history of hypertension presents with abdominal pain. States it is present in his left lower quadrant. States it is aching in nature. States it awoke him from his sleep this morning. Denies any nausea, vomiting, constipation, hematochezia, melena. Denies any fever, chills, cough, shortness of breath, urinary symptoms. Past Medical History - Allergies and Home Meds Allergies/Adverse Reactions: Allergies Penicillins Allergy (Verified 05/29/20 07:20) PT UNSURE OF REACTION Primary Care Physician: Jean Magana MD [Primary Care Provider] - Prior records reviewed: Yes Past Medical History: - - Hypertension Surgical History: - - Splenic aneurysm repair Lives: Spouse/ Significant Other Smoking Status: Never smoker Alcohol: None Drugs: None - Family History Maternal Family History: Reports: No pertinent history Paternal Family History: Reports: No pertinent history Review of Systems General: Denies: Chills, Fever, Sweats Eyes: Denies: Visual changes - bilaterally, Diplopia ENT: Denies: Rhinorrhea, Sore throat Cardiovascular: Denies: Chest pain, Palpitations Respiratory: Denies: Dyspnea, Cough, Dyspnea on exertion Gastrointestinal: Reports: Abdominal pain. Denies: Nausea, Vomiting, Diarrhea, Melena, Hematochezia Genitourinary: Denies: Dysuria, Hematuria, Frequency Musculoskeletal: Denies: Back pain, Extremity Pain Skin: Denies: Rash, Wounds Neurological: Denies: Headache, Weakness, Numbness Physical Exam Vital Signs/Narrative: Vital Signs Temp Pulse Resp BP Pulse Ox 05/29/20 07:21 97.5 F L 51 L 19 H 101/61 95 Inital Vital Signs reviewed: Yes General: Well nourished, Well developed, No Acute Distress Head: Normocephalic, Atraumatic Eyes: Perrl, EOMI ENT: Moist mucous membranes, No rhinorrhea Neck: Supple, Nontender Cardiovascular: Regular rate, Regular rhythm, No murmurs Respiratory: No distress, CTA bilaterally, Chest nontender Abdomen: Soft, Nondistended, Normal bowel sounds, - - TTP left lower quadrant as well as suprapubic area. No rebound or guarding. No overlying skin changes. Back: Nontender, Normal Inspection Extremities: Nontender, No edema Skin: Normal color, No rash Neurological: Alert, Oriented x3, Cranial nerves II-XII grossly intact, Normal Strength, Normal Sensation Psychological: Normal affect, Normal Mood Diagnostic/Tx/Re-eval Clinical Impression(s) from Imaging Studies Abdomen/Pelvis CT 05/29/20 07:26 IMPRESSION: Suspect constipation. Electronically Signed: Maxim Hewitt MD at 8:39 EST Tel , Service support , Laboratory Data 05/29/20 05/29/20 05/29/20 07:30 07:30 08:50 WBC 12.9 H RBC 5.34 Hgb 14.9 Hct 45.6 MCV 85.4 MCH 27.9 MCHC 32.7 RDW Std Deviation 41.3 RDW Coeff of Ankita 13.3 Plt Count 253 MPV 9.7 Immature Gran % (Auto) 0.800 Neut % (Auto) 60.1 Lymph % (Auto) 26.0 Tompkins % (Auto) 8.4 Eos % (Auto) 4.1 Baso % (Auto) 0.6 Absolute Neuts (auto) 7.8 H Absolute Lymphs (auto) 3.37 Nucleated RBC % 0 Sodium 140 Potassium 4.0 Chloride 109 H Carbon Dioxide 24.0 Anion Gap 7 BUN 30 H Creatinine 1.27 Estim Creat Clear Calc 58.35 Est GFR (MDRD) Af Amer 74 Est GFR (MDRD) Non-Af 61 BUN/Creatinine Ratio 23.6 H Glucose 203 H Calcium 8.6 Total Bilirubin 0.40 AST 14 L ALT 25 Alkaline Phosphatase 65 Troponin I < 0.015 Total Protein 6.7 Albumin 3.5 Globulin 3.2 Albumin/Globulin Ratio 1.1 Lipase 115 Urine Color Yellow Urine Clarity Clear Urine pH 7.0 Ur Specific [place] 1.005 Urine Protein Negative Urine Glucose (UA) Normal Urine Ketones Negative Urine Occult Blood Negative Urine Nitrite Negative Urine Bilirubin Negative Urine Urobilinogen Normal Ur Leukocyte Esterase Negative Urine RBC 0 SEEN Urine WBC 0 SEEN Ur Squamous Epith Cells 0 SEEN Urine Bacteria 0 SEEN Urine Mucus 0 SEEN - Rhythm Strip Rhythm Strip: Bradycardia Rate: 51 Ectopy: None - EKG Initial EKG Interpretation: Sinus Bradycardia - Sinus bradycardia 51 bpm. TX interval 200 ms. QTC of 568 ms. T wave inversions in leads V1 and V2. - Medical Decision Making Patient appears well and nontoxic. Vital signs show bradycardia. Normotensive. Lab work shows volume depletion. Patient was given 1 L of normal saline. CT shows evidence of significant constipation. Patient deferred rectal exam at this time. Normal bowel movement yesterday. Will be given magnesium citrate for home. Patient's bradycardia and initial hypotension by EMS is likely vagal response. Patient feeling improved after 1 L of normal saline and will be discharged home and asked to return for new or worsening symptoms. Patient agreeable and discharged home in stable condition. Impression: 1. Abdominal pain 2. Asymptomatic bradycardia 3. Constipation ED Disposition - Plan for ED Patient: Disposition: Home or Assisted Living Instructions: ED Constipation (Adult), ED Bradycardia Prescriptions: Magnesium Citrate [Citrate Of Magnesia] 300 ml PO X1 #1 bottle Prescription Printed Referrals: Jean Magana MD [Primary Care Provider] - 2 Days
[2020-05-29] MEDS: 0.9% Normal Saline 1,000 ML 1000 ML IV (07:38)
[2020-05-29] MEDS: fentaNYL 100 MCG/2 ML Ampul 50 MCG IV (07:38)
[2020-05-29 07:41] LABS: Absolute Lymphocyte Count 3.37 X10^3/uL (0.83-4.51); Absolute Neutrophil Count 7.8 X10^3/uL (2.0-7.7); Basophil# 0.08 X10^3/uL; Basophil% 0.6 % (0-1); Eosinophil# 0.53 X10^3/uL; Eosinophils% 4.1 % (0-5); Hematocrit 45.6 % (40-54); Hemoglobin 14.9 g/dL (13.0-16.5); Lymphocyte # 3.37 X10^3/ul (4.0); Mean Corp Hgb Conc 32.7 g/dL (32-36); Mean Corpuscular Hgb 27.9 pg (27.0-32.0); Mean Corpuscular Volume 85.4 fL (80-94); Mean Platelet Vol. 9.7 fl (6.2-12.0); Monocyte# 1.09 X10^3/uL; Monocyte% 8.4 % (0-10); NRBC Flagged by Analyzer 0 % (0-5); Neutrophil # 7.77 X10^3/uL (2.7-7.7); Neutrophil % 60.1 % (47-70); Platelet Count 253 K/mm3 (150-450); RBC Distribution Width CV 13.3 % (11.6-14.6); RBC Distribution Width SD 41.3 fl (35.1-43.9); Red Blood Count 5.34 M/mm3 (4.6-6.2); White Blood Count 12.9 K/mm3 (4.4-11.0)
[2020-05-29 08:03] LABS: ALB/GLOB Ratio 1.1 RATIO (0.9-2.4); AST(SGOT) 14 U/L (15-37); Alanine Aminotransfer ALT/SGPT 25 U/L (16-61); Albumin, Serum 3.5 g/dL (3.2-5.0); Alkaline Phosphatase 65 U/L (45-117); Anion Gap 7 (5-15); BUN 30 mg/dL (7-18); BUN/Creat Ratio 23.6 RATIO (10-20); Calcium,Total 8.6 mg/dL (8.5-10.1); Chloride 109 mmol/L (98-107); Creatinine, Serum 1.27 mg/dL (0.70-1.30); EST Glomerular Filtration Rate 61 mL/min (>60); Est Glom Filt Rate - Afr Amer 74 mL/min (>60); Estimated Creatinine Clearance 58.35 ml/min; Globulin 3.2 g/dL (2.2-4.2); Glucose 203 mg/dL (74-106); Lipase 115 U/L (73-393); Protein, Total 6.7 g/dL (6.4-8.2); Sodium Level 140 mmol/L (136-145)
[2020-05-29 08:53] LABS: Bacteria 0 SEEN /hpf (None Seen); Mucous, Urine 0 SEEN /hpf (<or=2+); Red Blood Cells-Urine 0 SEEN /hpf (0-5); Squamous Epithelial Cells - UA 0 SEEN /hpf (0-5); White Blood Cells 0 SEEN /hpf (0-5)
[2020-05-29 08:56] LABS: Color, Urine Yellow (Yellow); Glucose, Dipstick Normal (Normal); Ketone-Dipstick Negative (Negative); Leukocyte Esterase-Dipstick Negative /ul (Negative); Nitrite-Dipstick Negative (Negative); Occult Blood-Urine Negative /ul (Negative); Protein-Dipstick Negative (Negative); Specific Gravity, Urine 1.005 (1.002-1.030); Urine Bilirubin Dipstick Negative (Negative); Urine Clarity Clear (Clear); Urine Urobilinogen Normal (Normal)
[2020-05-29 09:35] VITALS: BP 104/69; PULSE 54; RESP 16
== END 2020-05-29 09:37 | disposition home or self-care (01) ==
PROVIDERS: Emergency Provider Emergency Medicine; PCP Family Medicine
DX: R10.32 Left lower quadrant pain (principal); R00.1 Bradycardia, unspecified; K59.00 Constipation, unspecified; E86.9 Volume depletion, unspecified; I10 Essential (primary) hypertension; Z79.01 Long term (current) use of anticoagulants; Z79.82 Long term (current) use of aspirin; Z79.899 Other long term (current) drug therapy; Z88.0 Allergy status to penicillin
CPT/HCPCS: 74177; 80053; 81001; 83690; 84484; 85025; 93005; 96361; 96374; 99284; Q9967; A4216

== ENCOUNTER → 2020-07-22 07:09 | Outpatient (CLI) | payer OTHER, SELFPAY ==
[2020-07-22 10:32] LABS: ALB/GLOB Ratio 1.1 RATIO (0.9-2.4); AST(SGOT) 18 U/L (15-37); Alanine Aminotransfer ALT/SGPT 35 U/L (16-61); Alkaline Phosphatase 76 U/L (45-117); Anion Gap 7 (5-15); BUN 18 mg/dL (7-18); BUN/Creat Ratio 17.5 RATIO (10-20); Calcium,Total 8.9 mg/dL (8.5-10.1); Chloride 105 mmol/L (98-107); Cholesterol 243 mg/dL (200); Creatinine, Serum 1.03 mg/dL (0.70-1.30); EST Glomerular Filtration Rate 78 mL/min (>60); Est Glom Filt Rate - Afr Amer 94 mL/min (>60); Globulin 3.8 g/dL (2.2-4.2); Glucose 100 mg/dL (74-106); High Density Lipoprotein 44 mg/dL; Potassium 3.8 mmol/L (3.5-5.1); Protein, Total 7.8 g/dL (6.4-8.2); Sodium Level 140 mmol/L (136-145); Triglycerides 98 mg/dL; Very Low Density Lipoprotein 20 mg/dL (5-40)
== END ==
PROVIDERS: PCP Family Medicine; Referring Provider Family Medicine; Visit Provider Family Medicine
DX: I10 Essential (primary) hypertension (principal)
CPT/HCPCS: 36415; 80053; 80061

== ENCOUNTER → 2020-11-07 07:15 | Outpatient (CLI) | payer OTHER, SELFPAY ==
[2020-11-07 11:21] LABS: ALB/GLOB Ratio 1.3 RATIO (0.9-2.4); AST(SGOT) 31 U/L (15-37); Alanine Aminotransfer ALT/SGPT 38 U/L (16-61); Albumin, Serum 3.9 g/dL (3.2-5.0); Alkaline Phosphatase 100 U/L (45-117); Anion Gap 9 (5-15); BUN 27 mg/dL (7-18); BUN/Creat Ratio 27.8 RATIO (10-20); Calcium,Total 8.6 mg/dL (8.5-10.1); Chloride 106 mmol/L (98-107); Cholesterol 148 mg/dL (200); Creatinine, Serum 0.97 mg/dL (0.70-1.30); EST Glomerular Filtration Rate 83 mL/min (>60); Est Glom Filt Rate - Afr Amer 100 mL/min (>60); Globulin 2.9 g/dL (2.2-4.2); Glucose 95 mg/dL (74-106); High Density Lipoprotein 42 mg/dL; Potassium 3.7 mmol/L (3.5-5.1); Protein, Total 6.8 g/dL (6.4-8.2); Sodium Level 141 mmol/L (136-145); Triglycerides 113 mg/dL; Very Low Density Lipoprotein 23 mg/dL (5-40)
== END ==
PROVIDERS: PCP Family Medicine; Referring Provider Family Medicine; Visit Provider Family Medicine
DX: E78.5 Hyperlipidemia, unspecified (principal)
CPT/HCPCS: 36415; 80053; 80061

== ENCOUNTER → 2020-12-16 | Outpatient (CLI) | payer OTHER, SELFPAY ==
--- NOTE | 2020-12-15 16:30 | LES_PTH ---
PATIENT: LATOYA GARCIA LOC: [facility] U#:[id number] AGE/SX: 60/M ROOM: RE12/16/[address]: Dr. Jean Magana MD : 1960 BED: DIS: 12/16/2020 SPEC #: [id number] RECD: 12/16/20 11:39 STATUS: YULIANA PONCE #: [id number] CAMELIA: 12/15/20 16:[address]: Jean Magnaa DEPT: SURGICAL PATHOLOGY RECD BY: Samantha Shay Tissues: A - Skin of back, NOS B - Skin of upper extremity, NOS C - Skin of back, NOS Procedures: Surgery Specimen Level IV HEADER OPERATION: Excision of skin PRE-OP DIAGNOSIS: Atypical lesions TISSUE SUBMITTED: A ? Back upper, B ? Right shoulder, C ? Lower back MICROSCOPIC DIAGNOSIS A. Upper back lesion, shave biopsy: Consistent with verrucous keratosis with moderate atypia. B. Right shoulder lesion, shave biopsy: Seborrheic keratosis with verrucous keratosis-like features. C. Lower back lesion, shave biopsy: Inflamed keratosis with severe atypia. See comment. SJ:danilo 12/19/2020 COMMENT A & C. The lesion is present at the deep margin of the specimen. Excisional biopsy is suggested for definite classification of the lesion, if clinically indicated. Clinical correlation and appropriate follow up are necessary. Case has been reviewed in consultation with Dr. Doyle who concurs with the above diagnosis. IDC:AM MICROSCOPIC DESCRIPTION Slides are reviewed. GROSS DESCRIPTION A - Received in fixative is one container labeled with the patient's name and designated specimen #1. The specimen consists of an irregular fragment of zamora skin measuring 7 x 5 x 0.2 cm. The specimen is inked, bisected and totally submitted in one cassette. B - Received in fixative is one container labeled with the patient's name and designated specimen #2. The specimen consists of an irregular fragment of zamora skin measuring 0.8 x 0.5 x 0.4 cm. The specimen is inked, bisected and totally submitted in one cassette. C - Received in fixative is one container labeled with the patient's name and designated specimen #3. The specimen consists of light zamora shave biopsy of skin measuring 0.3 x 0.2 x <0.1 cm. The specimen is submitted in its entirety in one cassette for post fixation sectioning. / AM:danilo 12/16/20 TC:5 CPT: 28535 x3
== END | disposition home or self-care (01) ==
LOC: LABSPEC 11:49
PROVIDERS: PCP Family Medicine; Referring Provider Family Medicine; Visit Provider Family Medicine
DX: L98.9 Disorder of the skin and subcutaneous tissue, unspecified (principal)
CPT/HCPCS: 88305

== ENCOUNTER → 2021-01-18 | Outpatient (CLI) | payer OTHER, SELFPAY ==
--- NOTE | 2021-01-18 | IMM_PTH ---
PATIENT: LATOYA GARCIA LOC: [facility] U#:[id number] AGE/SX: 61/M ROOM: RE01/18/[address]: Dr. Stewart Rivero MD : 1960 BED: DIS: 01/18/2021 SPEC #: [id number] RECD: 01/23/21 14:09 STATUS: YULIANA REQ #: [id number] CAMELIA: 01/18/21 00:[address]: Stewart Rivero DEPT: IMMUNOHISTOCHEMISTRY RECD BY: Zeynep Staley ENTERED: 01/23/21 14:11 SP TYPE: IMMUNO OTHR DR: Dr. Jean Magana MD Tissues: Skin of back, NOS Procedures: CK5-6 (add) MACRO (add) P53 (add) Vimentin (add) Pankeratin (initial) MELAN-A (add) P40 (add) S-100 (add) PHYSICIAN [facility] INSTITUTION [address] [address] SPECIMEN INFORMATION: Tissue Source: Left back lesion Clinical Info: Left back lesion Specimen Number: [id number] CPT code: 74174, 89039 x7 METHODOLOGY: Deparaffinized sections of prefer/formalin-fixed tissue or PAP/DQ stained slides are incubated with monoclonal/polyclonal antibodies/oligonucleotide probes. Localization is made via biotin free immunoperoxidase method. Appropriate controls are performed and reacted as expected. Results on target cell population are indicated in the following table: RESULTS: ANTIBODY / CLONE RESULT AE1-3 (AE1/AE3/PCK26) negative Vimentin (V9) negative Macro (HAM-56) negative Melan A (A103) positive, focal S-100 (4C4.9) negative CK5-6 (D5 & 1684) negative P40 (BC28) negative P53 (DO-7) positive, focal These tests were developed and their performance characteristics determined by [facility]. They may not have been cleared or approved by the U.S. Food and Drug Administration. The FDA has determined that such clearance or approval is not necessary. The above immunohistochemical/dualISH markers are ordered and reviewed by the Pathologist. INTERPRETATION: Left back lesion, excision: Focal benign mild melanocytic hyperplasia. AM:danilo 01/24/2021
--- NOTE | 2021-01-18 14:20 | LES_PTH ---
PATIENT: LATOYA GARCIA [facility] U#:[id number] AGE/SX: 61/M ROOM: RE01/18/[address]: Dr. Stewart Rivero MD : 1960 BED: DIS: 01/18/2021 SPEC #: [id number] RECD: 01/18/21 15:47 STATUS: YULIANA PONCE #: [id number] CAMELIA: 01/18/21 14:[address]: Stewart Rivero DEPT: SURGICAL PATHOLOGY RECD BY: Rory Esparza ENTERED: 01/19/21 08:50 SP TYPE: Lesion OTHR DR: Dr. Jean Magana MD Tissues: Skin of back, NOS Procedures: Surgery Specimen Level IV HEADER OPERATION: Excision left back lesion PRE-OP DIAGNOSIS: Back lesion TISSUE SUBMITTED: Left back lesion MICROSCOPIC DIAGNOSIS Skin lesion of back, excisional biopsy: Cicatrix. Focal benign mild melanocytic hyperplasia. No evidence of malignancy. AM:am 01/23/21 COMMENT Immunohistochemistry ([id number]) supports the diagnosis. Case has been reviewed in consultation with Dr. Cruz who concurs with the above diagnosis. IDC:SJ MICROSCOPIC DESCRIPTION Slides are reviewed. GROSS DESCRIPTION Received is one container labeled with the patient name and designated left back lesion. The specimen consists of one irregular fragment of light zamora skin and attached soft tissue that measures 2.5 x 1.0 x 0.8cm. The specimen is inked, sectioned and totally submitted in one cassette. /AM:am 01/19/21 TC:5 CPT:85692
== END | disposition home or self-care (01) ==
LOC: LABSPEC 16:30
PROVIDERS: PCP Family Medicine; Visit Provider Surgery
DX: L98.9 Disorder of the skin and subcutaneous tissue, unspecified (principal)
CPT/HCPCS: 88305; 88341; 88342

== ENCOUNTER → 2021-02-15 12:26 | Outpatient (CLI) | payer OTHER, SELFPAY ==
[2021-02-15 15:16] LABS: Absolute Lymphocyte Count 2.15 X10^3/uL (0.83-4.51); Absolute Neutrophil Count 7.4 X10^3/uL (2.0-7.7); Basophil# 0.06 X10^3/uL; Basophil% 0.5 % (0-1); Eosinophil# 0.36 X10^3/uL; Eosinophils% 3.3 % (0-5); Hematocrit 48.7 % (40-54); Lymphocyte # 2.15 X10^3/ul (0.83-4.51); Lymphocyte % 19.7 % (19-41); Mean Corp Hgb Conc 32.9 g/dL (32-36); Mean Corpuscular Hgb 28.3 pg (27.0-32.0); Mean Corpuscular Volume 86.2 fL (80-94); Mean Platelet Vol. 9.9 fl (6.2-12.0); Monocyte# 0.82 X10^3/uL; Monocyte% 7.5 % (0-10); NRBC Flagged by Analyzer 0 % (0-5); Neutrophil # 7.44 X10^3/uL (2.7-7.7); Neutrophil % 68.3 % (47-70); Platelet Count 263 K/mm3 (150-450); RBC Distribution Width CV 13.8 % (11.6-14.6); RBC Distribution Width SD 43.6 fl (35.1-43.9); Red Blood Count 5.65 M/mm3 (4.6-6.2); White Blood Count 10.9 K/mm3 (4.4-11.0)
[2021-02-15 15:54] LABS: AST(SGOT) 32 U/L (15-37); Alanine Aminotransfer ALT/SGPT 50 U/L (16-61); Alkaline Phosphatase 106 U/L (45-117); Anion Gap 7 (5-15); BUN 24 mg/dL (7-18); BUN/Creat Ratio 23.8 RATIO (10-20); Calcium,Total 9.2 mg/dL (8.5-10.1); Chloride 106 mmol/L (98-107); Creatinine, Serum 1.01 mg/dL (0.70-1.30); EST Glomerular Filtration Rate 79 mL/min (>60); Est Glom Filt Rate - Afr Amer 96 mL/min (>60); Glucose 105 mg/dL (74-106); Potassium 4.6 mmol/L (3.5-5.1); Sodium Level 139 mmol/L (136-145); Thyroid Stim Hormone (TSH) 1.65 uIU/mL (0.358-3.74)
== END ==
PROVIDERS: PCP Family Medicine; Referring Provider Family Medicine; Visit Provider Family Medicine
DX: R00.8 Other abnormalities of heart beat (principal)
CPT/HCPCS: 36415; 80053; 84443; 85025

== ENCOUNTER → 2021-03-02 07:32 | Outpatient (CLI) | payer OTHER, SELFPAY ==
--- NOTE | 2021-03-02 07:35 | ECHOD_ITS ---
Reason For Study: VENTRICULAR BIGEMINY Procedure This was a 2D Doppler, Color Flow transthoracic echocardiogram. Exam performed in department. Left Ventricle Normal LV size. The estimated ejection fraction is 60 %. No evidence for diastolic dysfunction. No regional wall motion abnormalities noted. Right Ventricle Normal RV size. Normal systolic function. Atria Normal left atrium. Normal right atrium. No doppler evidence for ASD. Mitral Valve There is no mitral valve stenosis. Trivial mitral valve insufficiency. Tricuspid Valve There is no tricuspid stenosis. No tricuspid valve insufficiency. Unable to estimate RV systolic pressure due to inadequate jet, pulmonary artery pressure probably normal. Aortic Valve Trisinus/trileaflet aortic valve. There is no aortic stenosis. No aortic valve insufficiency. Pulmonic Valve There is no pulmonic valvular stenosis. No pulmonic valve insufficiency. Great Vessels Normal aortic root. Pericardium/Pleural No pericardial effusion. MMode/2D Measurements & Calculations LVIDd: 4.8 cm IVSd: 0.89 cm Ao root diam: 3.3 cm LVIDs: 3.3 cm LVPWd: 0.83 cm RVDd: 3.4 cm FS: 30.8 % LAV(MOD-bp): 33.7 ml LVAd ap4: 33.2 cm2 SV(MOD-sp4): 69.4 ml LAV(MOD-bp) Indexed: 17.3 ml/m2 LVLd ap4: 8.5 cm LAV(MOD-sp2): 34.7 ml EDV(MOD-sp4): 106.7 ml LAV(MOD-sp4): 34.0 ml EDV(sp4-el): 110.0 ml LVAs ap4: 17.6 cm2 LVLs ap4: 7.0 cm ESV(MOD-sp4): 37.3 ml ESV(sp4-el): 37.7 ml EF(MOD-sp4): 65.0 % EF(sp4-el): 65.8 % SV(sp4-el): 72.3 ml LA A4 area: 13.6 cm2 LA dimension(2D): 3.6 cm RA A4 area: 11.8 cm2 Time Measurements MV dec time: 0.23 sec Doppler Measurements & Calculations MV E max torey: 76.5 cm/sec Lat Peak E' Torey: 9.3 cm/sec Med Peak E' Torey: 9.2 cm/sec MV A max torey: 85.5 cm/sec E/E' lat: 8.3 E/E' med: 8.4 MV E/A: 0.90 Ao V2 max: 144.1 cm/sec LV V1 max: 102.0 cm/sec PA V2 max: 111.5 cm/sec Ao max P.3 mmHg LV V1 max P.2 mmHg TR max torey: 222.2 cm/sec TR max P.8 mmHg ECHO/Echo Complete Interpretation Summary The estimated ejection fraction is 60 %. No evidence for diastolic dysfunction. Trivial mitral valve insufficiency. Ordering Physician: Dulce Ramirez Referring Physician: Dulce Ramirez Performed By: Carie Castillo RDCS
== END ==
PROVIDERS: PCP Family Medicine; Referring Provider Family Medicine; Visit Provider Family Medicine
DX: I49.9 Cardiac arrhythmia, unspecified (principal); I10 Essential (primary) hypertension; R00.8 Other abnormalities of heart beat
CPT/HCPCS: 93306

== ENCOUNTER → 2021-05-09 13:46 | Outpatient (CLI) | payer OTHER, SELFPAY | PROVIDERS: PCP Family Medicine; Referring Provider Internal Medicine Cardiovascular Disease; Visit Provider Internal Medicine Cardiovascular Disease | DX: I49.3 Ventricular premature depolarization (principal) | CPT/HCPCS: 93225; 93226 ==

== ENCOUNTER 2021-05-31 06:01 | Outpatient (CLI) | payer BC, SELFPAY ==
--- NOTE | 2021-05-31 17:49 | STRESSREP ---
Stress Test Report Exercise myocardial perfusion stress test. 61-year-old male with a history of premature ventricular complexes. Stress protocol: Resting EKG demonstrates normal sinus rhythm with a rate of 90 bpm and frequent premature ventricular complexes noted. Resting blood pressure is 140/72 mmHg. The patient exercised according to regular Yoan protocol for a total duration of 6 minutes and 30 seconds. The maximum heart rate attained was 146 bpm which was 92% of max impact at heart rate the maximum workload was 8.5 metabolic equivalents. At rest there were no ST or T wave changes noted to suggest ischemia and at peak exercise upsloping ST changes were noted with did not meet the criteria for ischemia. Occasional premature ventricular complexes were noted. However the frequency appears to be significantly decreased with exercise. The peak blood pressure was 156/68 mmHg. No clinical angina was noted the test was terminated due to leg fatigue. Myocardial perfusion protocol. 11.4 mCi of technetium 99m sestamibi was injected at rest. The patient exercised according to regular Yoan protocol for 6 minutes and 30 seconds. At peak exercise 33.7 mCi of technetium 99m sestamibi was injected stress images were obtained stress and rest images were reconstructed in comparing the short axis vertical long and horizontal long axis. Gated images could not be obtained due to the frequent premature ventricular complexes. Perfusion SPECT analysis: Review of the stress images demonstrate normal uptake of tracer noted in all areas of the myocardium. The resting images similarly demonstrate normal uptake of tracer noted in all areas of the myocardium. There is no evidence of GI attenuation artifact noted. No transient ischemic dilatation was present. Conclusion: Normal exercise myocardial perfusion stress test with no evidence of ischemia noted at a moderate workload. Premature ventricular complexes noted at rest dissipating with exercise.
== END 2021-05-31 23:59 | disposition short-term general hospital (02) ==
PROVIDERS: PCP Family Medicine; Referring Provider Internal Medicine Cardiovascular Disease; Visit Provider Internal Medicine Cardiovascular Disease
DX: I49.3 Ventricular premature depolarization (principal)
CPT/HCPCS: 78452; 93017; A9500; A4216

== ENCOUNTER → 2021-10-17 | Outpatient (CLI) | payer BC, SELFPAY | END | disposition home or self-care (01) | LOC: PSN 14:02 | PROVIDERS: PCP Family Medicine; Visit Provider Physician Assistant Medical | DX: I49.3 Ventricular premature depolarization (principal) | CPT/HCPCS: 93225; 93226 ==

== ENCOUNTER → 2021-12-25 | Outpatient (CLI) | payer BC, SELFPAY | END | disposition home or self-care (01) | LOC: PSN 06:52 | PROVIDERS: PCP Family Medicine; Referring Provider Physician Assistant Medical; Visit Provider Physician Assistant Medical | DX: I49.3 Ventricular premature depolarization (principal) | CPT/HCPCS: 93225; 93226 ==

== ENCOUNTER 2022-02-13 17:47 | Emergency (ER) | payer BC, SELFPAY ==
[2022-02-13 17:48] VITALS: BP 161/85; PULSE 43; RESP 15; TEMP 36.5; O2SAT 96; BMI 27.1
--- NOTE | 2022-02-13 18:08 | ED.VIS.GI ---
HPI HPI - GI History of Present Illness Chief Complaint: Constipation Detail of Chief Complaint: Abdominal pain and constipation Informant: patient and spouse/S.O. Abdominal Pain/Flank Pain Onset: Days Context: Sudden Onset Timing: Intermittent and Waxes and wanes Quality: Cramping Location: Diffuse Current Severity: Gone Maximum Severity: Moderate Worsened by: Nothing Relieved by: Nothing Nausea/Vomiting/Emesis GI Symptom: Negative for Nausea or Vomiting Diarrhea/Melena/Hematochezia GI Symptom: Negative for Diarrhea, Melena or Hematochezia Associated Symptoms Associated Symptoms: Negative for Dysuria, Frequency, Hematuria or Urgency Narrative Narrative: Patient is an elderly male who presents because of heart pebble-like stools for approximately 1 month. He is on a medicine for his heart that apparently causes constipation. He does not recall the name of the medicine, however. Patient has not been drinking sufficient amount of fluids. He attempted Dulcolax pill, oil enema, Dulcolax suppository, Metamucil tabletsWith no improvement. He presents because he has not had a bowel movement in 24 hours and feels slightly bloated and complains of colicky pain Prior similar symptoms: Yes Recent Illness/Hospitalization: No PFSH PFSH Medical History Deep vein thrombosis (DVT) of left lower extremity (09/2018) Essential hypertension History of pulmonary embolus (PE) Hyperlipidemia (05/22/19) Lipoma of arm Skin lesion of back Skin lesion of left arm Splenic artery aneurysm (2014) Home Medications lisinopril 10 mg tablet 10 mg PO DAILY blood pressure 06/20/14 [History Last Taken 05/21/19] multivitamin with minerals 1 ea PO DAILY supplement 05/22/19 [History Last Taken 05/21/19] apixaban 5 mg tablet 5 mg PO BID 04/24/21 [History Last Taken Unknown] atorvastatin 40 mg tablet 40 mg PO QHS 04/24/21 [History Last Taken Unknown] verapamil 120 mg 24 hr capsule,extended release 120 mg PO DAILY #90 caps 10/31/21 [Rx Last Taken Unknown] Allergy/AdvReac Type Severity Reaction Status Date / Time Penicillins Allergy PT UNSURE Verified 02/13/22 17:48 OF REACTION Surgical History History of herniorrhaphy Social History (Updated 02/13/22 @ 18:[address] Jame Foreman MD) household members: spouse Smoking Status: Never smoker alcohol intake: never substance use type: does not use caffeine: No ROS ROS ED Constitutional Constitutional ED: Denies chills, fever(s), subjective, sweats or weight loss ENT ENT ED: Denies ear pain, rhinorrhea or sore throat Cardiovascular Cardiovascular: Denies chest pain, palpitations or racing heartbeat Gastrointestinal Gastrointestinal: Reports abdominal pain and constipation; Denies diarrhea, melena, nausea or vomiting Genitourinary Genitourinary ED: Denies dysuria, hematuria or urinary frequency Musculoskeletal Musculoskeletal: Denies back pain Hematologic/Lymphatic Hematologic/Lymphatic: Denies easy bleeding or easy bruising EXAM Physical Exam Const Vital Signs: 02/13/22 17:48 Temperature 97.7 F L Temperature Source Temporal Pulse Rate 43 L Respiratory Rate 15 Blood Pressure 161/85 H Blood Pressure Mean 110 Pulse Ox 96 Oxygen Delivery Method Room Air Positive well nourished and well developed General Appearance ED: well developed and NAD HEENT Reports moist mucous membranes normocephalic and atraumatic Eyes PERRL and EOMs intact bilaterally General Eye ED: Negative for pale conjunctiva or scleral icterus Neck no lymphadenopathy, supple and no JVD Resp normal respiratory effort and clear to auscultation bilaterally Cardio regular rate, regular rhythm, S1 normal heart sound, S2 normal heart sound and no murmurs GI non-tender and no masses; Negative for non-distended GI Narrative: Abdomen is tympanitic. Bowel sounds are diminished. Inspection: abdominal distention Palpation: soft Narrative: There is no inguinal lymphadenopathy or mass noted. Back/Spine no CVA tenderness Extremity full ROM General Extremety ED: Negative for edema or tenderness General Extremity: Negative for edema Neuro CN's II-XII intact bilaterally and moves all extremities Psych mental status grossly normal and thought process normal Skin no wounds MDM MDM MDM Narrative Medical decision making narrative: Patient presents with obstipation. Rectal exam reveals no stool in the rectal vault. There is no fissures, fistulas or hemorrhoids noted. Prostate is normal. Patient was explained he can purchase mag citrate and then 4 hours later drink a glass of MiraLAX and drink a glass of MiraLAX every hour until he has results. If MiraLAX is still on national shortage recommend drinking a glass of MiraLAX every hour until he has results especially since he is taking a Dulcolax tablet and a Dulcolax suppository prior to coming to the emergency department. Discharge Plan Triage Chief Complaint: Constipation ED Provider: Jame Foreman Dx/Rx/DC Orders Clinical Impression: Obstipation, Hyperlipidemia, Essential hypertension, Anticoagulant long-term use Instructions: Eating a High-Fiber Diet, ED Constipation (Adult) Prescriptions: No Action atorvastatin 40 mg tablet 40 mg PO QHS Label Comments: TAKE 1 TABLET BY MOUTH ONCE DAILY apixaban 5 mg tablet 5 mg PO BID verapamil 120 mg capsule,ext rel. pellets 24 hr 120 mg PO DAILY Qty: 90 3RF lisinopril 10 MG tablet 10 mg PO DAILY multivitamin with minerals 1 EACH tablet 1 ea PO DAILY Primary Care Provider: Dulce Ramirez Referrals: Dulce Ramirez MD [Primary Care Provider] - 3-5 Days if not improving Activity Restrictions/Additional Instructions: 1. If the pharmacy has mag citrate purchase a bottle and drink 10 ounces now. 4 hours later drink a glass of MiraLAX. Continue to drink a glass of MiraLAX every hour until you have results. 2. If there is no mag citrate at the pharmacy recommend drinking a glass of MiraLAX every hour until you have results. 3. Starting recommend MiraLAX 3 times a day for 1 week. 4. Recommend MiraLAX twice a day thereafter. Disposition Disposition: Home, Self Care
[2022-02-13 18:39] VITALS: RESP 16
== END 2022-02-13 18:41 | disposition home or self-care (01) ==
PROVIDERS: Emergency Provider Emergency Medicine; PCP Family Medicine; Visit Provider Emergency Medicine
DX: K59.00 Constipation, unspecified (principal); I10 Essential (primary) hypertension; Z79.01 Long term (current) use of anticoagulants; E78.5 Hyperlipidemia, unspecified; R10.9 Unspecified abdominal pain; Z86.718 Personal history of other venous thrombosis and embolism
CPT/HCPCS: 99282

== ENCOUNTER → 2022-06-01 | Outpatient (CLI) | payer BC, SELFPAY ==
[2022-06-01 16:40] LABS: Bacteria 0 SEEN /hpf (None Seen); Red Blood Cells-Urine 0 SEEN /hpf (0-5); Squamous Epithelial Cells - UA 0 SEEN /hpf (0-5); White Blood Cells 0 SEEN /hpf (0-5)
[2022-06-01 18:09] LABS: Absolute Lymphocyte Count 2.72 X10^3/uL (0.83-4.51); Absolute Neutrophil Count 7.7 X10^3/uL (2.0-7.7); Basophil# 0.08 X10^3/uL; Basophil% 0.6 % (0-1); Eosinophil# 0.62 X10^3/uL; Hematocrit 47.9 % (40-54); Hemoglobin 15.5 g/dL (13.0-16.5); Lymphocyte # 2.72 X10^3/ul (0.83-4.51); Mean Corp Hgb Conc 32.4 g/dL (32-36); Mean Corpuscular Hgb 28.1 pg (27.0-32.0); Mean Corpuscular Volume 86.9 fL (80-94); Mean Platelet Vol. 9.4 fl (6.2-12.0); Monocyte# 1.08 X10^3/uL; Monocyte% 8.7 % (0-10); NRBC Flagged by Analyzer 0 % (0-5); Neutrophil # 7.74 X10^3/uL (2.7-7.7); Neutrophil % 62.7 % (47-70); Platelet Count 278 K/mm3 (150-450); RBC Distribution Width CV 13.4 % (11.6-14.6); RBC Distribution Width SD 42.5 fl (35.1-43.9); Red Blood Count 5.51 M/mm3 (4.6-6.2); White Blood Count 12.4 K/mm3 (4.4-11.0)
[2022-06-01 18:12] LABS: Color, Urine Yellow (Yellow); Glucose, Dipstick Normal (Normal); Ketone-Dipstick Negative (Negative); Leukocyte Esterase-Dipstick Negative /ul (Negative); Nitrite-Dipstick Negative (Negative); Occult Blood-Urine Negative /ul (Negative); Protein-Dipstick Negative (Negative); Urine Bilirubin Dipstick Negative (Negative); Urine Clarity Clear (Clear); Urine Urobilinogen Normal (Normal)
[2022-06-01 18:30] LABS: Mucous, Urine 3+ /hpf (<or=2+)
[2022-06-01 18:43] LABS: ALB/GLOB Ratio 1.2 RATIO (0.9-2.4); AST(SGOT) 24 U/L (15-37); Alanine Aminotransfer ALT/SGPT 49 U/L (16-61); Albumin, Serum 4.1 g/dL (3.2-5.0); Alkaline Phosphatase 98 U/L (45-117); Anion Gap 5 (5-15); BUN 21 mg/dL (7-18); BUN/Creat Ratio 20.6 RATIO (10-20); Calcium,Total 9.2 mg/dL (8.5-10.1); Chloride 104 mmol/L (98-107); Cholesterol 153 mg/dL (200); Creatinine, Serum 1.02 mg/dL (0.70-1.30); EST Glomerular Filtration Rate 78 mL/min (>60); Est Glom Filt Rate - Afr Amer 95 mL/min (>60); Globulin 3.4 g/dL (2.2-4.2); Glucose 85 mg/dL (74-106); High Density Lipoprotein 46 mg/dL; Potassium 4.4 mmol/L (3.5-5.1); Protein, Total 7.5 g/dL (6.4-8.2); Sodium Level 139 mmol/L (136-145); Thyroid Stim Hormone (TSH) 2.17 uIU/mL (0.358-3.74); Triglycerides 121 mg/dL; Very Low Density Lipoprotein 24 mg/dL (5-40)
== END | disposition home or self-care (01) ==
LOC: MFPLAB 16:39
PROVIDERS: Family Medicine; PCP Family Medicine; Referring Provider Family Medicine; Visit Provider Family Medicine
DX: E78.5 Hyperlipidemia, unspecified (principal); I10 Essential (primary) hypertension
CPT/HCPCS: 36415; 80053; 80061; 81001; 84443; 85025

== ENCOUNTER → 2023-01-02 | Outpatient (CLI) | payer BC, SELFPAY ==
[2023-01-07 21:07] LABS: Fats, Neutral Normal (.); Fats, Total Normal (.)
[2023-01-08 15:08] LABS: Pancreatic Elastase, Fecal 130 (>200)
== END | disposition home or self-care (01) ==
PROVIDERS: PCP Family Medicine; Referring Provider Family Medicine; Visit Provider Family Medicine
DX: R19.7 Diarrhea, unspecified (principal)
CPT/HCPCS: 82653; 82705; 83630; 87177; 87209; 87493; 87506

== ENCOUNTER → 2023-02-27 | Outpatient (CLI) | payer BC, SELFPAY ==
[2023-02-27 17:36] LABS: Absolute Lymphocyte Count 2.42 X10^3/uL (0.83-4.51); Absolute Neutrophil Count 7.7 X10^3/uL (2.0-7.7); Basophil# 0.08 X10^3/uL; Basophil% 0.7 % (0-1); Eosinophil# 0.68 X10^3/uL; Eosinophils% 5.6 % (0-5); Hematocrit 48.2 % (40-54); Hemoglobin 15.1 g/dL (13.0-16.5); Lymphocyte # 2.42 X10^3/ul (0.83-4.51); Lymphocyte % 19.9 % (19-41); Mean Corp Hgb Conc 31.3 g/dL (32-36); Mean Corpuscular Hgb 27.9 pg (27.0-32.0); Mean Corpuscular Volume 88.9 fL (80-94); Mean Platelet Vol. 9.9 fl (6.2-12.0); Monocyte# 1.23 X10^3/uL; Monocyte% 10.1 % (0-10); NRBC Flagged by Analyzer 0 % (0-5); Neutrophil # 7.69 X10^3/uL (2.7-7.7); Platelet Count 248 K/mm3 (150-450); RBC Distribution Width CV 14.1 % (11.6-14.6); RBC Distribution Width SD 45.2 fl (35.1-43.9); Red Blood Count 5.42 M/mm3 (4.6-6.2); White Blood Count 12.2 K/mm3 (4.4-11.0)
[2023-02-27 18:15] LABS: AST(SGOT) 21 U/L (15-37); Alanine Aminotransfer ALT/SGPT 38 U/L (16-61); Albumin, Serum 3.7 g/dL (3.2-5.0); Alkaline Phosphatase 90 U/L (45-117); Anion Gap 5 (5-15); BUN 27 mg/dL (7-18); BUN/Creat Ratio 29.1 RATIO (10-20); Calcium,Total 8.8 mg/dL (8.5-10.1); Chloride 106 mmol/L (98-107); Cholesterol 139 mg/dL (200); Creatinine, Serum 0.93 mg/dL (0.70-1.30); EST Glomerular Filtration Rate 87 mL/min (>60); Est Glom Filt Rate - Afr Amer 105 mL/min (>60); Globulin 3.6 g/dL (2.2-4.2); Glucose 92 mg/dL (74-106); High Density Lipoprotein 39 mg/dL; Protein, Total 7.3 g/dL (6.4-8.2); Sodium Level 138 mmol/L (136-145); Triglycerides 172 mg/dL; Very Low Density Lipoprotein 34 mg/dL (5-40)
== END | disposition home or self-care (01) ==
LOC: MFPLAB 17:05
PROVIDERS: PCP Family Medicine; Visit Provider Family Medicine
DX: I10 Essential (primary) hypertension (principal)
CPT/HCPCS: 36415; 80053; 80061; 85025

== ENCOUNTER → 2023-04-01 | Outpatient (CLI) | payer BC, SELFPAY | END | disposition home or self-care (01) | LOC: PSN 14:00 | PROVIDERS: PCP Family Medicine; Referring Provider Physician Assistant Medical; Visit Provider Physician Assistant Medical | DX: R00.2 Palpitations (principal); I49.3 Ventricular premature depolarization | CPT/HCPCS: 93225; 93226 ==

== ENCOUNTER → 2023-06-25 | Outpatient (CLI) | payer MEDICARE, SELFPAY ==
--- NOTE | 2023-06-25 17:10 | RAD_ITS ---
INDICATION: flank pain EXAMINATION/TECHNIQUE: X-RAY - XR Abdomen 1 View COMPARISON: Not available FINDINGS: Surgical coils are noted in the left upper quadrant. BOWEL GAS PATTERN: Non-obstructive. No bowel or stomach distention. FREE AIR: Not assessed on a single supine view. ORGANOMEGALY: Not seen. CALCIFICATIONS: No abnormal calcifications observed. LOWER CHEST: No acute pathology. BONES AND SOFT TISSUES: No acute pathology. RAD/Abdomen Single View IMPRESSION: Surgical coils noted in the left upper quadrant. Otherwise unremarkable x-rays of the abdomen. Electronically Signed: Merlin Cerrato, at 17:51 EST ,
== END | disposition home or self-care (01) ==
PROVIDERS: PCP Family Medicine; Referring Provider Family Medicine; Visit Provider Family Medicine
DX: R10.9 Unspecified abdominal pain (principal)
CPT/HCPCS: 74018

== ENCOUNTER → 2023-10-30 | Outpatient (CLI) | payer MEDICARE, SELFPAY | END | disposition home or self-care (01) | LOC: LABSPEC 12:23 | PROVIDERS: PCP Family Medicine; Referring Provider Physician Assistant; Visit Provider Physician Assistant | DX: L02.419 Cutaneous abscess of limb, unspecified (principal) | CPT/HCPCS: 87070; 87075; 87205 ==

== ENCOUNTER → 2023-11-27 | Outpatient (CLI) | payer MEDICARE, SELFPAY ==
[2023-11-27 07:39] LABS: Mucous, Urine 0 SEEN /hpf (<or=2+); Squamous Epithelial Cells - UA 0 SEEN /hpf (0-5); White Blood Cells 0 SEEN /hpf (0-5)
[2023-11-27 09:56] LABS: Color, Urine Yellow (Yellow); Glucose, Dipstick Normal (Normal); Ketone-Dipstick Negative (Negative); Leukocyte Esterase-Dipstick Negative /ul (Negative); Nitrite-Dipstick Negative (Negative); Occult Blood-Urine 10 /ul (Negative); Protein-Dipstick Negative (Negative); Specific Gravity, Urine 1.025 (1.002-1.030); Urine Bilirubin Dipstick Negative (Negative); Urine Clarity Clear (Clear); Urine Urobilinogen Normal (Normal)
[2023-11-27 10:00] LABS: Absolute Lymphocyte Count 1.95 X10^3/uL (0.83-4.51); Absolute Neutrophil Count 11.4 X10^3/uL (2.0-7.7); Basophil# 0.04 X10^3/uL; Basophil% 0.3 % (0-1); Eosinophil# 0.37 X10^3/uL; Eosinophils% 2.5 % (0-5); Hematocrit 48.9 % (40-54); Hemoglobin 15.9 g/dL (13.0-16.5); Lymphocyte # 1.95 X10^3/ul (0.83-4.51); Mean Corp Hgb Conc 32.5 g/dL (32-36); Mean Corpuscular Hgb 28.3 pg (27.0-32.0); Mean Corpuscular Volume 87.2 fL (80-94); Mean Platelet Vol. 10.4 fl (6.2-12.0); Monocyte# 1.24 X10^3/uL; Monocyte% 8.2 % (0-10); NRBC Flagged by Analyzer 0 % (0-5); Neutrophil # 11.39 X10^3/uL (2.7-7.7); Neutrophil % 75.6 % (47-70); Platelet Count 223 K/mm3 (150-450); RBC Distribution Width CV 13.3 % (11.6-14.6); RBC Distribution Width SD 42.5 fl (35.1-43.9); Red Blood Count 5.61 M/mm3 (4.6-6.2); White Blood Count 15.1 K/mm3 (4.4-11.0)
[2023-11-27 10:04] LABS: Bacteria 1+ /hpf (None Seen); Calcium Oxalate Crystals Ur 1+ /hpf (<or=2+); Red Blood Cells-Urine 0-5 SEEN /hpf (0-5)
[2023-11-27 10:27] LABS: ALB/GLOB Ratio 1.1 RATIO (0.9-2.4); AST(SGOT) 20 U/L (15-37); Alanine Aminotransfer ALT/SGPT 34 U/L (16-61); Albumin, Serum 3.9 g/dL (3.2-5.0); Alkaline Phosphatase 95 U/L (45-117); Anion Gap 5 (5-15); BUN 23 mg/dL (7-18); BUN/Creat Ratio 20.7 RATIO (10-20); Calcium,Total 9.3 mg/dL (8.5-10.1); Chloride 107 mmol/L (98-107); Cholesterol 129 mg/dL (200); Creatinine, Serum 1.11 mg/dL (0.70-1.30); EST Glomerular Filtration Rate 71 mL/min (>60); Est Glom Filt Rate - Afr Amer 85 mL/min (>60); Globulin 3.6 g/dL (2.2-4.2); Glucose 128 mg/dL (74-106); High Density Lipoprotein 42 mg/dL; Magnesium 2.3 mg/dL (1.6-2.6); Potassium 4.1 mmol/L (3.5-5.1); Protein, Total 7.5 g/dL (6.4-8.2); Sodium Level 139 mmol/L (136-145); Thyroid Stim Hormone (TSH) 1.94 uIU/mL (0.358-3.74); Triglycerides 83 mg/dL; Very Low Density Lipoprotein 17 mg/dL (5-40)
[2023-11-27 10:50] LABS: Hemoglobin A1c 5.5 % (3.8-5.6)
== END | disposition home or self-care (01) ==
LOC: MTLAB 07:34
PROVIDERS: PCP Family Medicine; Referring Provider Family Medicine; Visit Provider Family Medicine
DX: I10 Essential (primary) hypertension (principal); R10.9 Unspecified abdominal pain; R73.01 Impaired fasting glucose
CPT/HCPCS: 36415; 80053; 80061; 81001; 83036; 83735; 84443; 85025

== ENCOUNTER → 2023-12-04 | Outpatient (CLI) | payer MEDICARE, SELFPAY ==
[2023-12-04 17:45] LABS: Absolute Lymphocyte Count 2.16 X10^3/uL (0.83-4.51); Absolute Neutrophil Count 7.5 X10^3/uL (2.0-7.7); Basophil# 0.08 X10^3/uL; Basophil% 0.7 % (0-1); Eosinophil# 0.44 X10^3/uL; Eosinophils% 3.8 % (0-5); Hematocrit 45.1 % (40-54); Hemoglobin 14.5 g/dL (13.0-16.5); Lymphocyte # 2.16 X10^3/ul (0.83-4.51); Lymphocyte % 18.9 % (19-41); Mean Corp Hgb Conc 32.2 g/dL (32-36); Mean Corpuscular Hgb 27.9 pg (27.0-32.0); Mean Corpuscular Volume 86.7 fL (80-94); Mean Platelet Vol. 9.7 fl (6.2-12.0); Monocyte# 1.14 X10^3/uL; NRBC Flagged by Analyzer 0 % (0-5); Neutrophil # 7.52 X10^3/uL (2.7-7.7); Neutrophil % 65.7 % (47-70); Platelet Count 253 K/mm3 (150-450); RBC Distribution Width CV 13.5 % (11.6-14.6); RBC Distribution Width SD 42.6 fl (35.1-43.9); White Blood Count 11.4 K/mm3 (4.4-11.0)
== END | disposition home or self-care (01) ==
LOC: MFPLAB 16:58
PROVIDERS: PCP Family Medicine; Visit Provider Family Medicine
DX: D72.829 Elevated white blood cell count, unspecified (principal)
CPT/HCPCS: 36415; 85025

== ENCOUNTER → 2023-12-20 | Outpatient (CLI) | payer MEDICARE, SELFPAY ==
[2023-12-20 17:59] LABS: Magnesium 2.3 mg/dL (1.6-2.6)
== END | disposition home or self-care (01) ==
LOC: LAB 16:47
PROVIDERS: PCP Family Medicine; Referring Provider Physician Assistant Medical; Visit Provider Physician Assistant Medical
DX: I49.3 Ventricular premature depolarization (principal); R53.83 Other fatigue; R07.9 Chest pain, unspecified
CPT/HCPCS: 36415; 83735

== ENCOUNTER → 2023-12-23 | Outpatient (CLI) | payer MEDICARE, SELFPAY | END | disposition home or self-care (01) | LOC: CVS 06:48 | PROVIDERS: PCP Family Medicine; Referring Provider Physician Assistant Medical; Visit Provider Physician Assistant Medical | DX: I49.3 Ventricular premature depolarization (principal); R53.83 Other fatigue; R07.9 Chest pain, unspecified | CPT/HCPCS: 93225; 93226 ==

== ENCOUNTER → 2024-01-14 | Outpatient (CLI) | payer MEDICARE, SELFPAY ==
--- NOTE | 2024-01-14 06:23 | ECHOD_ITS ---
Version 3 Reason For Study: Palpitations Procedure This was a 2D Doppler, Color Flow transthoracic echocardiogram. Exam performed in department.
--- NOTE | 2024-01-14 10:25 | STRESSREP_ITS ---
Stress Test Report Exercise myocardial perfusion stress test. 63-year-old man with a history of chest pain Stress protocol: Resting EKG demonstrates normal sinus rhythm with a rate of 86 bpm, frequent premature ventricular complexes noted, resting blood pressure is 160/88 mmHg. The patient exercised according to the regular Yoan protocol for a total duration of 8 minutes attaining a maximum heart rate of 146 bpm which was 94% of maximum predicted heart rate; the maximum workload was 10.1 metabolic equivalents. At rest there were no ST or T wave changes noted to suggest ischemia and at peak exercise upsloping ST changes only were noted which did not meet the criteria for ischemia. No clinical angina was noted the test was terminated due to the target heart rate being achieved/fatigue. The peak blood pressure was 180/82 mmHg. Rate-pressure product was 21,800. Frequent premature ventricular complexes were noted during exercise. Myocardial perfusion protocol. 11.9 mCi of technetium 99m sestamibi was injected at rest. The patient exercised according to regular Yoan protocol for total duration of 8 minutes and at peak exercise 34.7 mCi of technetium 99m sestamibi was injected stress images were obtained stress and rest images were reconstructed in comparing the short axis vertical long and horizontal long axis. Gated images were not o btained due to the frequent premature ventricular complexes. Also obtained. Perfusion SPECT analysis: Review of the stress images demonstrate normal uptake of tracer noted in all areas of the myocardium. The resting images similarly demonstrate normal uptake of tracer noted in all areas of the myocardium. No areas of reversibility are noted to suggest ischemia no previous infarct was noted. Conclusion: Normal exercise myocardial perfusion stress test at a high workload
== END | disposition home or self-care (01) ==
LOC: CVS 06:21
PROVIDERS: PCP Family Medicine; Referring Provider Physician Assistant Medical; Visit Provider Physician Assistant Medical
DX: R07.9 Chest pain, unspecified (principal); R53.83 Other fatigue; I49.3 Ventricular premature depolarization
CPT/HCPCS: 78452; 93017; 93306; A9500; A4216

== ENCOUNTER → 2024-02-07 | Outpatient (CLI) | payer MEDICARE, SELFPAY | END | disposition home or self-care (01) | LOC: PSN 06:42 | PROVIDERS: PCP Family Medicine; Referring Provider Physician Assistant Medical; Visit Provider Physician Assistant Medical | DX: I49.3 Ventricular premature depolarization (principal) | CPT/HCPCS: 93225; 93226 ==

== ENCOUNTER → 2024-03-02 | Outpatient (CLI) | payer MEDICARE, SELFPAY | END | disposition home or self-care (01) | LOC: PSN 06:57 | PROVIDERS: PCP Family Medicine; Referring Provider Physician Assistant Medical; Visit Provider Physician Assistant Medical | DX: I49.3 Ventricular premature depolarization (principal) | CPT/HCPCS: 93225; 93226 ==

== ENCOUNTER 2024-07-28 20:36 | Emergency (ER) | payer MEDICARE, SELFPAY ==
[2024-07-28 20:38] VITALS: BP 181/95; PULSE 76; RESP 15; TEMP 35.9; O2SAT 94
[2024-07-28] MEDS: Lidocaine 1% /Epi 1:100 (20ml) 20 ML Vial INFILT (20:52)
--- NOTE | 2024-07-28 21:52 | EX.ED.GENINJ ---
HPI History of Present Illness Chief Complaint: Laceration Informant: patient and spouse/S.O. Narrative Narrative: 64-year-old male presenting to the emergency room with bleeding from the left elbow. Patient is on apixaban for PE/DVT. Patient states that he fell today because laceration to the left elbow. He went to urgent care and had stitches placed. He states that since returning home he started bleeding through his dressing and now he has a large amount of swelling at the elbow. He notes it is not particularly painful and he still has not filled range of motion. [facility] Medical History Thigh abscess Essential hypertension Hyperlipidemia (05/22/19) History of pulmonary embolus (PE) Splenic artery aneurysm (2014) Deep vein thrombosis (DVT) of left lower extremity (09/2018) Lipoma of arm Skin lesion of back Skin lesion of left arm Medical History unable to obtain Home Medications ?Medication ?Instructions ?Recorded ?Last Taken ?Type multivitamin with minerals 1 ea PO DAILY supplement 05/22/19 05/21/19 History apixaban 5 mg tablet 5 mg PO BID #180 tabs 07/23/23 Unknown Rx atorvastatin 40 mg tablet 40 mg PO QHS #90 tabs 07/23/23 Unknown Rx lisinopril 10 mg tablet 10 mg PO BID blood pressure #180 07/23/23 Unknown Rx tabs magnesium gluconate 27 mg 27 mg PO BID Use gluconate, not 09/18/23 Unknown Rx magnesium (500 mg) tablet oxide due to GI issues #180 tabs metoprolol succinate 100 mg 100 mg PO QDAY #90 tabs 06/09/24 Unknown Rx tablet,extended release 24 hr Allergy/AdvReac Type Severity Reaction Status Date / Time Penicillins Allergy PT UNSURE Verified 07/28/24 20:38 OF REACTION Surgical History History of herniorrhaphy Social History household members: spouse Smoking Status: Never smoker alcohol intake: never substance use type: does not use caffeine: No ROS ROS ED Constitutional Constitutional ED: Denies chills or weight loss Eyes Eyes: Denies change in vision or diplopia ENT ENT ED: Denies ear pain, rhinorrhea or sore throat Cardiovascular Cardiovascular: Denies chest pain, orthopnea, palpitations or racing heartbeat Respiratory/Chest Respiratory/Chest: Denies cough, dyspnea or orthopnea Gastrointestinal Gastrointestinal: Denies abdominal pain, diarrhea, nausea or vomiting Genitourinary Genitourinary ED: Denies dysuria, hematuria or urinary frequency Musculoskeletal Musculoskeletal: Denies arthralgias or myalgias Integumentary Reports other Details: Laceration hematoma ; Denies abscess or rash Neurologic Neurologic: Denies headache(s) or weakness Psychiatric Psychiatric: Denies anxiety, depression, suicidal ideation or suicidal thoughts Endocrine Endocrinology: Denies polydipsia, polyphagia or polyuria Allergic/Immunologic Allergic/Immunologic ED: Denies mouth swelling, tongue swelling or urticaria EXAM Physical Exam Const Vital Signs: 07/28/24 20:38 Temperature 96.7 F L Temperature Source Temporal Pulse Rate 76 Respiratory Rate 15 Blood Pressure 181/95 H Blood Pressure Mean 123 Pulse Ox 94 Oxygen Delivery Method Room Air Positive well nourished and well developed General Appearance ED: well developed and NAD HEENT Reports normocephalic, head/scalp atraumatic and moist mucous membranes Eyes PERRL and EOMs intact bilaterally Neck no lymphadenopathy, supple and no JVD Resp normal respiratory effort and clear to auscultation bilaterally Cardio regular rate, regular rhythm and no murmurs GI normal to inspection, nondistended, normoactive bowel sounds and non-tender Palpation: soft Back/Spine no CVA tenderness and normal ROM Extremity Extremity Narrative: There is a hematoma to the lateral posterior left elbow with an associated 4 cm curvilinear laceration. There are some apparent maybe 5-[address] The distal end of the laceration sutures have opened up and the wound is gaping. There is an associated hematoma. There is not a traumatic bursitis noted. Full range of motion. General Extremety ED: Negative for edema General Extremity: Negative for edema Neuro oriented x3 and CN's II-XII intact bilaterally Sensorium / Orientation: alert Motor Exam: strength 5/5 throughout Psych mental status grossly normal Mood & Affect: Negative for depressed or tearful Skin no rashes or lesions noted and no wounds MDM MDM MDM Narrative Medical decision making narrative: Differential diagnosis includes anticoagulated on apixaban, laceration, venous injury, fracture or hematoma wound dehiscence I think most likely what happened was the patient had move the elbow and the wound started to open up and continued bleeding resulted in hematoma in the pressure then further opened laceration. The wound was locally anesthetized using 1% lidocaine with epinephrine. I then placed a total of 8 simple interrupted 3-[address] Along the way I was removing the previously placed stitches from earlier today. I got to the more proximal and I noted that a large amount of the swelling was actually not coagulated. Has able to express this blood which resulted in significant decrease in the localized swelling. A Gelfoam was then placed over the wound as well as 4 x 4's and then an Carmine wrap. Stitches will need to be removed in 10 days. Patient notes understanding of wound care instructions. History & Record Review Discussion w/independent historian: Patient Discharge Plan Triage Chief Complaint: Laceration ED Provider: Merlin Mclaughlin Dx/Rx/DC Orders Clinical Impression: Laceration of elbow, Anticoagulated, Hematoma of right elbow Instructions: ED Laceration Extremity Prescriptions: No Action apixaban 5 mg tablet 5 mg PO BID Qty: 180 3RF atorvastatin 40 mg tablet 40 mg PO QHS Qty: 90 3RF lisinopril 10 mg tablet 10 mg PO BID Qty: 180 3RF multivitamin with minerals 1 EACH tablet 1 ea PO DAILY magnesium gluconate 27 mg magnesium (500 mg) tablet 27 mg PO BID Qty: 180 3RF metoprolol succinate 100 mg tablet extended release 24 hr 100 mg PO QDAY Qty: 90 3RF Primary Care Provider: Jean Hay Referrals: Jean Hay MD [Primary Care Provider] - 10 Day for suture removal Print Language: Ethiopian Disposition Disposition: Home, Self Care Discharge Date/Time: 07/28/24 21:29
== END 2024-07-28 21:29 | disposition home or self-care (01) ==
PROVIDERS: Emergency Provider Emergency Medicine; PCP Family Medicine; Visit Provider Emergency Medicine
DX: S51.011A Laceration without foreign body of right elbow, initial encounter (principal); I10 Essential (primary) hypertension; Z79.01 Long term (current) use of anticoagulants; E78.5 Hyperlipidemia, unspecified; Z86.718 Personal history of other venous thrombosis and embolism; W19.XXXA Unspecified fall, initial encounter; Z79.899 Other long term (current) drug therapy; S50.01XA Contusion of right elbow, initial encounter
CPT/HCPCS: 12002; 99283

== ENCOUNTER → 2024-10-02 | Outpatient (CLI) | payer MEDICARE, SELFPAY ==
[2024-10-02 18:03] LABS: Absolute Lymphocyte Count 1.98 X10^3/uL (0.83-4.51); Absolute Neutrophil Count 11.5 X10^3/uL (2.0-7.7); Basophil# 0.06 X10^3/uL; Basophil% 0.4 % (0-1); Eosinophil# 0.58 X10^3/uL; Eosinophils% 3.6 % (0-5); Lymphocyte # 1.98 X10^3/ul (0.83-4.51); Lymphocyte % 12.4 % (19-41); Mean Corp Hgb Conc 33.3 g/dL (32-36); Mean Corpuscular Hgb 28.9 pg (27.0-32.0); Mean Corpuscular Volume 86.6 fL (80-94); Mean Platelet Vol. 9.8 fl (6.2-12.0); NRBC Flagged by Analyzer 0 % (0-5); Neutrophil # 11.53 X10^3/uL (2.7-7.7); Neutrophil % 72.3 % (47-70); POSITIVE DIFFERENTIAL YES; Platelet Count 357 K/mm3 (150-450); RBC Distribution Width CV 13.6 % (11.6-14.6); RBC Distribution Width SD 43.3 fl (35.1-43.9); Red Blood Count 4.85 M/mm3 (4.6-6.2)
[2024-10-02 18:16] LABS: Differential Indicated SCAN CRITERIA MET
[2024-10-02 18:17] LABS: ALB/GLOB Ratio 1.1 RATIO (0.9-2.4); AST(SGOT) 34 U/L (<=37); Alanine Aminotransfer ALT/SGPT 35 U/L (<=46); Albumin, Serum 3.6 g/dL (3.4-4.8); Alkaline Phosphatase 138 U/L (40-129); Anion Gap 12 (5-15); BUN 23 mg/dL (4-19); BUN/Creat Ratio 23.8 RATIO (10-20); Carbon Dioxide 22.9 mmol/L (21.0-32.0); Chloride 103 mmol/L (98-108); Cholesterol 95 mg/dL (<=200); Creatinine, Serum 0.97 mg/dL (0.70-1.20); EST Glomerular Filtration Rate 87 (>60); Globulin 3.4 g/dL (2.2-4.2); Glucose 113 mg/dL (70-99); High Density Lipoprotein 24 mg/dL; Low Density Lipoprotein Calc. 50 mg/dL; Magnesium 2.1 mg/dL (1.5-2.2); Potassium 4.3 mmol/L (3.3-5.1); Protein, Total 7.1 g/dL (5.9-8.4); Sodium Level 137 mmol/L (133-145); Total Bilirubin 0.39 mg/dL (0.00-1.30); Triglycerides 107 mg/dL; Very Low Density Lipoprotein 21 mg/dL (5-40); cholesterol:hdl ratio screen 3.98
[2024-10-02 18:55] LABS: Hemoglobin A1c 5.8 % (<=5.6)
[2024-10-02 19:37] LABS: Differential Comment SCANNED
== END | disposition home or self-care (01) ==
LOC: MTLAB 16:53
PROVIDERS: PCP Family Medicine; Referring Provider Family Medicine; Visit Provider Family Medicine
DX: E78.5 Hyperlipidemia, unspecified (principal); R73.01 Impaired fasting glucose; I10 Essential (primary) hypertension
CPT/HCPCS: 36415; 80053; 80061; 83036; 83735; 84443; 85025

== ENCOUNTER → 2024-10-19 | Outpatient (CLI) | payer MEDICARE, SELFPAY ==
[2024-10-19 17:56] LABS: Absolute Lymphocyte Count 2.55 X10^3/uL (0.83-4.51); Absolute Neutrophil Count 6.8 X10^3/uL (2.0-7.7); Basophil# 0.08 X10^3/uL; Basophil% 0.7 % (0-1); Eosinophil# 0.48 X10^3/uL; Eosinophils% 4.3 % (0-5); Hematocrit 45.9 % (40-54); Hemoglobin 14.7 g/dL (13.0-16.5); Lymphocyte # 2.55 X10^3/ul (0.83-4.51); Lymphocyte % 22.6 % (19-41); Mean Corpuscular Hgb 28.2 pg (27.0-32.0); Mean Corpuscular Volume 87.9 fL (80-94); Mean Platelet Vol. 10.3 fl (6.2-12.0); Monocyte# 1.21 X10^3/uL; Monocyte% 10.7 % (0-10); NRBC Flagged by Analyzer 0 % (0-5); Neutrophil # 6.84 X10^3/uL (2.7-7.7); Neutrophil % 60.8 % (47-70); Platelet Count 301 K/mm3 (150-450); RBC Distribution Width CV 14.2 % (11.6-14.6); RBC Distribution Width SD 45.7 fl (35.1-43.9); Red Blood Count 5.22 M/mm3 (4.6-6.2); White Blood Count 11.3 K/mm3 (4.4-11.0)
== END | disposition home or self-care (01) ==
LOC: MFPLAB 16:49
PROVIDERS: PCP Family Medicine; Referring Provider Family Medicine; Visit Provider Family Medicine
DX: E78.5 Hyperlipidemia, unspecified (principal)
CPT/HCPCS: 36415; 85025